=== PATIENT | female | born 1950 | race Caucasian/White ===

== ENCOUNTER 2018-09-12 10:18 | Inpatient (IN) | payer MEDICARE, MEDICAID ==
[2018-09-12] MEDS ORDERED: Famotidine IV* 10 MG/ML 2 ML (20 mg) ONE (10:33)
[2018-09-12] MEDS ORDERED: Midazolam* 1 MG/ML 5 ML VIAL (5 MG) ONE (11:34)
[2018-09-12] MEDS ORDERED: Lidocaine 2% PF * 5 ML VIAL ONE (11:34)
[2018-09-12] MEDS ORDERED: Ondansetron INJ* 2 MG/ML VIAL ONE (11:34)
[2018-09-12] MEDS ORDERED: Propofol* 10 MG/ML 20 ML BTL ONE ×2 (11:34→12:52)
[2018-09-12] MEDS ORDERED: KETAMINE HCL* 50 MG/ML 10 ML VIAL ONE (11:34)
[2018-09-12] MEDS ORDERED: fentaNYL* 50 MCG/ML 2 ML VIAL (100 MCG VIAL) ONE (11:34)
[2018-09-12] MEDS ORDERED: EPHEDrine (Pressors)* 50 MG/ML VIAL ONE (12:41)
[2018-09-12] MEDS ORDERED: Naloxone* 0.4 MG/ML 1 ML VIAL IV PRN (13:21)
[2018-09-12] MEDS ORDERED: Acetaminophen TAB* 325 MG PO PRN (14:52)
[2018-09-12] MEDS ORDERED: Al Hydrox/Mg Hydrox/Simet LIQ* 30 ML UDC PO PRN (14:52)
[2018-09-12] MEDS ORDERED: Magnesium Hydroxide LIQ* 30 ML UDC PO PRN (14:52)
[2018-09-12] MEDS ORDERED: Dextrose 50% Syringe 50 ML* 25 GM/50 ML SYRINGE IV PUSH PRN (15:07)
[2018-09-12] MEDS ORDERED: guaiFENesin LIQ* 100 MG/5 ML UDC PO PRN (15:10)
[2018-09-12] MEDS: NS 0.9% 1000 ML** 1,000 ML IV SCH (16:06)
[2018-09-12 17:53] LABS: ABS Basophils 0 10^3/ul (0-0.2); ABS Eosinophils 0 10^3/ul (0-0.6); ABS Monocytes 0.4 10^3/ul (0-0.8); ABS Neutrophils 4.4 10^3/ul (1.5-7.7); ABS Nucleated RBC 0 10^3/ul; Eosinophil % 0 %; Hematocrit 29 % (35-47); Hemoglobin 8.6 g/dl (12.0-16.0); Lymphocyte % 16.6 %; Mean Corpuscular HGB Conc 30 g/dl (31-36); Mean Corpuscular Hemoglobin 20 pg (27-31); Mean Corpuscular Volume 65 fL (80-97); Mean Platelet Volume 8.3 fL (7.4-10.4); Nucleated Red Blood Cells % 0.1; Platelet Count 469 10^3/ul (150-450); Red Blood Count 4.39 10^6/ul (4.00-5.40); Red Cell Distribution Width 21 % (10.5-15); White Blood Count 5.8 10^3/ul (3.5-10.8)
[2018-09-12] MEDS: Insulin LISPRO* 1 UNITS UNIT SUBCUT SCH ×2 (17:55→21:07)
[2018-09-12 18:11] LABS: Albumin 3.2 g/dL (3.2-5.2); BUN/Creatinine Ratio 10.2 (8-20); Calcium 8.5 mg/dL (8.6-10.3); EGFR African American 77.8 (>60); EGFR Non-African American 64.3 (>60); Globulin 3.2 g/dL (2-4); Potassium 3.2 mmol/L (3.5-5.0); Total Bilirubin 0.3 mg/dL (0.2-1.0); Total Protein 6.4 g/dL (6.4-8.9)
[2018-09-12] MEDS ORDERED: Iodixanol* (CONTRAST) 320 MG/ML 100 ML SDV IV ONE (18:20)
--- NOTE | 2018-09-12 19:32 | HP ---
CC: Dr. Owens; Dr. Weldon, Gastroenterology; Dr. Andreia Gray, General Surgery * HISTORY AND PHYSICAL: DATE OF ADMISSION: 09/12/18 PRIMARY CARE PROVIDER: Dr. Owens. CHIEF COMPLAINT: Status post colonoscopy with abnormal findings. HISTORY OF PRESENT ILLNESS: Magdalena Barroso is a 68-year-old female with history of obesity, diabetes, hypothyroidism, mental retardation, who lives long -term in a [facility]. The patient herself is not very sure for how long she had been living there, but "for quite some time." Apparently, the patient was evaluated by her primary care provider for anemia and she was noted to have abnormal CT findings with thickening of the colon. Dr. Weldon performed an elective outpatient colonoscopy on the patient today and noted to have a large colon mass that was friable and bleeding. At this point, due to the extent of the mass and the patient's management issues, the patient was recommended by Dr. Weldon to be admitted to the hospital for further evaluation and treatment of a near obstructing colon mass. The patient herself is a very poor historian and most of the remaining history and physical was obtained from medical records. PAST MEDICAL HISTORY: 1. History of obesity. 2. Diabetes type 2, on insulin. 3. Hypothyroidism. 4. History of recent evaluation for anemia as above. 5. History of gastroesophageal reflux disease. 6. History of depression. 7. History of mental retardation. PAST SURGICAL HISTORY: History of exploratory laparotomy for unknown reason. MEDICATIONS: Include: 1. Zyrtec 10 mg daily. 2. Vitamin D3 50,000 units p.o. weekly. 3. Ferrous sulfate 325 mg b.i.d. 4. Fluphenazine 2.5 mg per mL and the patient takes 0.5 mL IM monthly, which would appear to be 1.25 mg monthly intramuscular injection. 5. Robitussin on a p.r.n. basis. 6. Insulin glargine 20 units at bedtime. 7. Levothyroxine 125 mcg daily. 8. Omeprazole 20 mg daily. 9. Zoloft 100 mg daily. 10. Zocor 10 mg at bedtime. ALLERGIES: PENICILLIN and CEFZIL with unknown reaction. FAMILY HISTORY: The patient is unable to provide. SOCIAL HISTORY: The patient lives at a long-term residential facility, [facility]. She has no history of alcohol, tobacco, or drug use. Her healthcare proxy is her brother, Adarsh, who lives in [place], [place]. His phone number is [phone]. REVIEW OF SYSTEMS: The patient denies any pain. She is currently sipping on clear liquid diet after her colonoscopy. She denies any shortness of breath or chest pain. She stated that she walks at the [facility] without any problems and independently. The review of systems is very limited, but is otherwise negative when reviewing all the 12 systems with the patient. PHYSICAL EXAMINATION GENERAL: The patient is a very pleasant 68-year-old female with a BMI of 35. The patient is in no acute distress. The patient is oriented to month and current year. She is aware of location and self. She is pleasant and cooperative with evaluation. Poor historian and poor memory. VITAL SIGNS: Blood pressure of 106/52, heart rate of 91 and regular, respiratory rate 16, oxygen saturation 95% on room air, temperature of 97.3. HEENT: Head: Atraumatic, normocephalic. Eyes: Pupils are equal, reactive to light and accommodation. Oropharynx is clear. Mucosa moist. NECK: Supple. No JVD. No bruits bilaterally. RESPIRATORY: Clear to auscultation bilaterally. CARDIOVASCULAR: Regular rate and rhythm. No murmur. ABDOMEN: Distended, tympanic to percussion, soft, nontender. Bowel sounds are present in all 4 quadrants. EXTREMITIES: There is no edema. Pulses are +2 bilaterally. No clubbing or cyanosis. NEUROLOGIC: Speech is clear. Cranial nerves II through XII are grossly intact. Motor strength is 5/5 bilaterally. LABORATORY DATA: Current laboratory data is ordered. ASSESSMENT AND PLAN: 1. Friable large colon mass noted on outpatient colonoscopy in a patient with history of iron-deficiency anemia and abnormal CT findings of abdomen in the past. As per Dr. Weldon's recommendation, the patient is going to be admitted to the hospital for further evaluation. I already contacted Dr. Andreia Gray from General Surgery, who will evaluate the patient for further surgical intervention. Due to questionable near obstruction by the mass, the patient is going to be currently placed on clear liquid diet and CT of the chest, abdomen and pelvis is going to be obtained to evaluate further the extent of the disease. 2. For hypothyroidism, the patient is going to be continued on her levothyroxine. 3. For diabetes, the patient is going to be placed on insulin sliding scale. Due to limited diet, her usual insulin glargine is not going to be continued for the time being. 4. For history of gastroesophageal reflux disease, the patient is going to be continued on her omeprazole. 5. For dyslipidemia, simvastatin is going to be held when the patient is on limited diet. 6. For DVT prophylaxis, due to the mass was friable and bleeding after pathology sample was obtained during colonoscopy, I will place the patient on sequential compression devices and withhold anticoagulants for the time being. We will continue obtaining daily CBCs to evaluate the patient's anemia. 7. The patient's code status is full and her surrogate is her brother as mentioned above. TIME SPENT: Approximately 70 minutes was spent on admission of this patient, more than half that time was spent [id number] with the patient during the interview and physical exam. [id number]/[facility] #: [id number] FOSTER
--- NOTE | 2018-09-12 21:13 | PRO ---
CC: Dr. Owens * COLONOSCOPY REPORT: DATE OF PROCEDURE: 09/12/18 PRIMARY CARE PHYSICIAN: Dr. Owens. INDICATION FOR PROCEDURE: Abnormal CAT scan. PROCEDURE PERFORMED: Complete colonoscopy to the terminal ileum with biopsy and tattooing. MEDICATIONS GIVEN: Please see anesthesia record. DESCRIPTION OF PROCEDURE: The colonoscopy procedure including the risks, benefits, and alternatives with the risks not limited to perforation, surgery, missed lesions, and/or were explained to the primary healthcare proxy and the patient. The healthcare proxy is Adarsh Barroso. I discussed this in detail with him and we agreed to proceed. IV sedation was given by the anesthesia service. A rectal exam was then performed. The rectal exam revealed scant blood. The adult Olympus colonoscope was then inserted into the patient's rectum initially to about 17 cm or so, and there a large circumferential mass was visualized, diffusely bleeding already before attempting to pass. I was unable to successfully pass the adult 3.7 scope. I then switched to an EGD scope and was able to carefully navigate through the narrowed lumen. The mass was friable and bleeding. The scope was eventually able to pass this area. At the conclusion, about 27 cm was the end of the mass and I was able to navigate the rest of the colon to the cecal base. The remainder of the colon was without large lesions or synchronous lesions. The preparation was fair, but I am able to exclude large polyps. The cecum was intubated quite difficult due to the flexibility of the EGD scope, but with persistence I was able to get good visualization of this area. In the cecum, the terminal ileal valve was identified and intubated x4 to 5 cm and normal in appearance. Over the next 12 minutes, I was then able to withdraw the scope. No large lesions were identified ; however, the fair prep did limit the sensitivity of very small lesions, but I feel I got good views overall. On return to 27 cm, I injected this area with Spot tattoo ink proximal to the lesion. I then injected distal to the lesion at around 15 cm or so the distal end of the lesion. I then extensively took biopsies. At the conclusion, there was still some bleeding occurring, the scope was then removed from the patient. She tolerated the procedure well. She returned to the recovery room in stable condition. IMPRESSION: 1. Complete colonoscopy to the terminal ileum. 2. Sigmoid colon mass 15 to 27 cm tattooed with Spot ink on either side and biopsied. 3. No large synchronous lesions identified. 4. Fair prep. RECOMMENDATIONS: Given the bleeding in the narrow lumen, I recommended admission for further workup. I discussed this with the healthcare proxy, Adarsh and he is in agreement. He is open to potential surgery if needed. He has a few reservations about potential chemotherapy depending on the extent of disease and how well she would tolerate it. I discussed the case with Dr. Lorenzo , who is agreeable to admission. We will admit the patient, get a CT of the chest, abdomen, and pelvis, and I will discuss the case with the surgical service. I feel that this is far enough up into the sigmoid colon that a resection is reasonable. [id number]/[facility] #: [id number] FOSTER
[2018-09-13] MEDS: Insulin LISPRO* 1 UNITS UNIT SUBCUT SCH ×4 (08:30→20:45)
[2018-09-13] MEDS: Levothyroxine TAB* 125 MCG TAB PO SCH (08:55)
[2018-09-13] MEDS: Sertraline* 100 MG TAB PO SCH (08:55)
[2018-09-13] MEDS: Pantoprazole TAB * 40 MG TAB PO SCH (08:55)
[2018-09-13 11:17] LABS: Total Iron Binding Capacity 290 mcg/dL (250-450); Transferrin 207 mg/dL (203-362)
[2018-09-13 11:22] LABS: % Iron Saturation 6 % (15-55); Iron < 17 ug/dL (50-212)
[2018-09-13 11:38] LABS: Ferritin 28.5 ng/mL (11-307)
--- NOTE | 2018-09-13 11:49 | PN ---
Progress Note - Progress Note Date of Service: 09/13/18 Note: Surgery Progress Note I saw the patient this morning as she was not in CT yesterday evening; please see dictated H&P for full details. Briefly, she is a 68 yo F with a history of anemia and bleeding per rectum. She had a CT scan that showed a sigmoid mass and colonoscopy yesterday confirmed a large near obstructing, friable sigmoid colon mass that biopsy confirms is adenocarcinoma. Staging CT C/A/P confirmed no distant metastasis but the mass itself appears locally invasive, making the lesion a clinical [id number] lesions (stage IIc). I spoke to her brother Adarsh (her healthcare proxy and medical decision maker), over the phone and discussed with him the results of the biopsy and the next steps. I have added the patient on for Tumor Board today and we will discuss the patient's management plans and surgical options. He indicated he was not certain if adjuvant chemotherapy and radiation is something he thinks she would tolerate but he seems willing for her to undergo surgery.
--- NOTE | 2018-09-13 12:09 | CONS ---
CONSULTATION AND HISTORY AND PHYSICAL: DATE OF CONSULT: 09/13/18 SERVICE: General Surgery. ATTENDING SURGEON: Dr. Andreia Gray. REASON FOR CONSULT: Sigmoid mass seen on colonoscopy. HISTORY OF PRESENT ILLNESS: Magdalena Barroso is a 68-year-old female with history of obesity, diabetes, hypothyroidism, mental retardation, who lives in a long-term facility in the [facility], who underwent colonoscopy yesterday with findings of a near-obstructing, friable sigmoid colon mass. Of note, the majority of this medical history is being obtained from medical records as the patient has developmental delay, does not have family members at the bedside, and the majority of the information was ascertained by discussing with other providers as well as reviewing her medical records. It seems that the patient was evaluated by her primary care physician for anemia and a CT scan was performed that showed abnormal thickening of the sigmoid colon. Dr. Weldon performed an elective outpatient colonoscopy on the patient on 09/12/18 and per the procedure report, found circumferential, long- segment, distal sigmoid colon friable mass. He was unable to pass the regular colonoscope through the lumen and therefore used a smaller upper endoscopic scope. Given that the lesion was extremely friable and appeared to be actively bleeding and it was near obstructing, he elected to have the patient admitted for further workup and the patient was admitted to Medicine. The patient is a poor historian. She can answer some questions. She states that she does not have any pain today. Per her nurse, she has been tolerating a diet. She is incontinent of stool and urine, but she is having watery bowel movements. The patient herself has said that her prior surgery was a hysterectomy. PAST MEDICAL HISTORY: 1. Obesity. 2. Diabetes type 2, on insulin. 3. Hypothyroidism. 4. Anemia. 5. Gastroesophageal reflux disease. 6. Depression. 7. History of mental retardation. PAST SURGICAL HISTORY: Exploratory laparotomy presumably for a hysterectomy per the patient. MEDICATIONS: 1. Zyrtec 10 mg daily. 2. Vitamin D. 3. Ferrous sulfate. 4. Fluphenazine. 5. Robitussin p.r.n. 6. Insulin glargine 20 units at bedtime. 7. Levothyroxine 125 mcg daily. 8. Omeprazole 20 mg daily. 9. Zoloft 100 mg daily. 10. Zocor 10 mg at bedtime. ALLERGIES: PENICILLIN and CEFZIL. FAMILY HISTORY: Unable to be ascertained from the patient. SOCIAL HISTORY: The patient has developmental delay. She lives in a long-term facility. No history of alcohol, tobacco, or drug use. Her healthcare proxy is her brother, Adarsh, who lives in [place], [place]; phone number is . REVIEW OF SYSTEMS: Unable to be obtained; however, the patient did say that the patient she does not have any abdominal pain. PHYSICAL EXAM: Vital Signs: Temperature is 97.3, pulse is 89, respiratory rate of 20, O2 sat is 98% O2 on room air, blood pressure is 114/51. General: Is an obese woman, sitting comfortably in bed, in no apparent distress, does answer some questions slowly and cannot understand other questions. HEENT is normocephalic, atraumatic. Cardiovascular is regular rate and rhythm. Respiratory: Clear to auscultation bilaterally. Abdomen is soft, distended, some tympani, nontender. There is a well-healed midline laparotomy incision. Extremities: She has no edema, but some venous stasis disease. DIAGNOSTIC STUDIES/LAB DATA: Laboratory values from 09/12/18: White blood cell count of 5.8, hemoglobin is 8.6, hematocrit is 29, platelets are 469. Sodium is 137, potassium is 3.2, chloride is 104, CO2 is 25, BUN is 9, creatinine is 0.88, glucose is 175. CEA is 41.6 and the upper limit of normal is 5. Imaging: CT chest, abdomen and pelvis from 09/12/18, please see images and full reports for details. I reviewed this imaging. Findings showed no thoracic metastatic disease, findings which in the proper clinical setting can be seen in pulmonary hypertension. The abdomen and pelvis showed a mid sigmoid mass involving the adjacent uterus and bladder, T4b, with no abnormal lymph nodes and no visualized metastases. The findings are consistent with stage IIC , nonspecific hepatosplenomegaly. Procedure reports: Colonoscopy from 09/12/[address] Weldon. Impression was complete colonoscopy to the terminal ileum, sigmoid colon mass 15 to 27 cm, tattooed with Spot ink on either side and biopsied. No large synchronous lesions identified, fair prep. ASSESSMENT AND PLAN: Ms. Barroso is a 68-year-old female with multiple medical problems most significantly for a developmental delay, who had apparently presented with anemia and during workup was found to have an abnormal sigmoid mass. An elective colonoscopy was done yesterday, which did confirm a large circumferential sigmoid mass that was friable and near obstructing and which is almost certainly consistent with the sigmoid colon adenocarcinoma especially given her elevated CEA. We are awaiting the pathology results in order to confirm the diagnosis and we will discuss this patient at tumor board. The patient will certainly need to have an oncologic resection performed; however, again given her history of developmental delay, this case must also be discussed with her healthcare proxy in order to obtain informed consent. [id number]/[facility] #: [id number] [facility]OSTER
[2018-09-13] MEDS: NS 0.9% 1000 ML** 1,000 ML IV SCH (12:53)
--- NOTE | 2018-09-13 12:58 | PN ---
Subjective Date of Service: 09/13/18 Interval History: Pt seen and examined. Meds and labs reviewed. CC: N/A ROS: Unable to obtain reliable 14 point ROS due to baseline developmental delay PHYSICAL EXAM: GEN APPEARANCE: Awake, not in acute distress HEENT: NC/AT, PERRLA, moist oral mucosa, (-) throat erythema NECK: Soft, supple, (-) cervical LAD, (-)JVD HEART: S1S2 WNL, RRR, No MRG CHEST: CTA, BL, GAE, No W/R/R ABD: Soft, ND/NT, NABS 4x Q EXT: No C/C/E SKIN: Warm to touch PSYCH: No active psychosis, hallucinations, depression, SI/HI, blunt affect Objective Active Medications: Acetaminophen (Tylenol Tab*) 650 mg PO Q4H PRN PRN Reason: FEVER/PAIN Al Hydrox/Mg Hydrox/Simethicone (Maalox Plus*) 30 ml PO Q6H PRN PRN Reason: INDIGESTION Dextrose (D50w Syringe 50 Ml*) 12.5 gm IV PUSH .FOR FS < 60 - SS PRN PRN Reason: FS < 60 Guaifenesin (Robitussin*) 10 ml PO Q6HR PRN PRN Reason: COUGH Sodium Chloride (Ns 0.9% 1000 Ml*) 1,000 mls @ 75 mls/hr IV PER RATE [facility] Last Admin: 09/13/18 12:53 Dose: 75 mls/hr Insulin Human Lispro (Humalog*) 0 units SUBCUT [facility]; Protocol Last Admin: 09/13/18 12:53 Dose: 1 units Levothyroxine Sodium (Synthroid Tab*) 125 mcg PO 0800 [facility] Last Admin: 09/13/18 08:55 Dose: 125 mcg Magnesium Hydroxide (Milk Of Magnesia Liq*) 30 ml PO Q4H PRN PRN Reason: CONSTIPATION Pantoprazole Sodium (Protonix Tab*) 40 mg PO 0800 [facility] Last Admin: 09/13/18 08:55 Dose: 40 mg Sertraline HCl (Zoloft*) 100 mg PO 0800 [facility] Last Admin: 09/13/18 08:55 Dose: 100 mg Vital Signs - 8 hr 09/13/18 09/13/18 09/13/18 07:27 07:38 08:00 Temperature 97.3 F Pulse Rate 89 Respiratory 20 20 Rate Blood Pressure 114/51 (mmHg) O2 Sat by Pulse 98 98 Oximetry Oxygen Devices in Use Now: None Result Diagrams: 09/12/18 17:38 09/12/18 17:38 Assess/Plan/Problems-Billing Assessment: - Patient Problems (1) Colon adenocarcinoma Current Visit: Yes Status: Acute Code(s): C18.9 - MALIGNANT NEOPLASM OF COLON, UNSPECIFIED SNOMED Code(s): 418997058 Comment: #Colon AdenoCA: -Invasive -D/W Dr. Rubin this AM who mentions she had just touched base with Surgeons and given invasiveness, may need a Gyne and Urology consult as well -Possible transfer to tertiary facility in AM? Will await plan being formulated by Dr. Rubin and appreciate input -Defer w/Heme-Onc (2) Anemia Current Visit: Yes Status: Acute Code(s): D64.9 - ANEMIA, UNSPECIFIED SNOMED Code(s): 363400007 Comment: -Will obtain Iron studies, B12, and folate levels -Given above, possibly due to combo of LAILA + AOCD---will await W/U (3) Hypothyroidism Current Visit: Yes Status: Acute Code(s): E03.9 - HYPOTHYROIDISM, UNSPECIFIED SNOMED Code(s): 75577646 Comment: -Continue current levothyroxine -Last TSH drawn was 04/2018 and was moderately elevated -Will repeat draw in AM (4) Diabetes 1.5, managed as type 2 Current Visit: Yes Status: Acute Code(s): E13.9 - OTHER SPECIFIED DIABETES MELLITUS WITHOUT COMPLICATIONS SNOMED Code(s): 304054846 Comment: -Well-controlled -Hba1c (08/29/18) = 5.6 -Continue ISS (5) GERD (gastroesophageal reflux disease) Current Visit: Yes Status: Acute Code(s): K21.9 - GASTRO-ESOPHAGEAL REFLUX DISEASE WITHOUT ESOPHAGITIS SNOMED Code(s): 659278136 Comment: -Continue Pantoprazole (6) DVT prophylaxis Current Visit: Yes Status: Acute Code(s): WNC4577 - SNOMED Code(s): 401618339 Comment: -Continue SCDs Status and Disposition: -As above
--- NOTE | 2018-09-13 13:35 | CONSULT ---
Consultation - Reason for Consultation Reason for Consultation: colon cancer Ordering Provider: Alcides Weldon Chief Complaint: work up of colon mass History of Present Illness: Of note, Yazmin is a limited historian so the majority of this history comes from the chart and in conversation with her team of doctors. Yazmin is a 68 yo morbidy obese F w PMH of mental retardation, DM and HTN who has been undergoing evaluation for iron deficiency anemia. She was initially managed conservatively given her comorbidities, however had a CT which suggested sigmoid colon thickening and so was taken for colonoscopy yesterday which revealed a large nearly obstructing sigmoid colon mass, biopsy of which confirms adenocarcinoma. Staging CT is concerning for local extension into the vagina/vaginal cuff and the bladder. Her CEA is ~48. She denies any obvious blood in stool or urine (or stool in urine). She does report mild midepigastric pain. She has lost 20 pounds (weight at [facility] 06/2018 218 lbs). She has been seen in consultation by Dr. Gray from surgery. Allergies/Medications Medication: Home Medications Medication Instructions Recorded Confirmed Type Cetirizine* [ZyrTEC 10 MG TAB*] 10 mg PO 0800 09/11/18 09/12/18 History Cholecalciferol CAP/TAB(NF) 50,000 units PO WEEKLY 09/11/18 09/12/18 History [Vitamin D3 CAP/TAB (NF)] Ferrous Sulfate 325 mg PO BID 09/11/18 09/12/18 History Fluphenazine IM* 0.5 ml IM MONTHLY 09/11/18 09/12/18 History Insulin Glargine,Hum.rec.anlog 20 unit SC BEDTIME 09/11/18 09/12/18 History [Lantus] Levothyroxine Sodium 125 mcg PO 0800 09/11/18 09/12/18 History Omeprazole CAP (NF) [Prilosec CAP* 20 mg PO 0800 09/11/18 09/12/18 History 20 MG] Sertraline HCl [Zoloft] 100 mg PO 0800 09/11/18 09/12/18 History Simvastatin TAB(NF) [Zocor(NF)] 10 mg PO BEDTIME 09/11/18 09/12/18 History guaiFENesin LIQ* [Robitussin*] 10 ml PO Q6HR PRN 09/11/18 09/12/18 History Allergies/Adverse Reactions: Allergies Allergy/AdvReac Type Severity Reaction Status Date / Time Cephalosporins Allergy Unknown Verified 09/12/18 11:11 Reaction Details Penicillins Allergy Unknown Verified 09/12/18 11:11 Reaction Details History - Past Medical History Other History: DM. mental delay. GERD. hypothyroidism. obesity. hysterectomy - Family History Other Family History: patient unable to provide - Social History Hx Alcohol Use: No Hx Tobacco Use: No Other Social History: resident of [facility] Review of Systems - Review of Systems General Comments: weight loss, can not provide an amount but per SNF record 20 lbs midepigastric pain at times, mild otherwise denies Physical Exam - Physical Exam Physical Examination: sitting up in nad perr eomi op moist CTA bl s1 s2 nl distended, very mild ttp midepigastrium, +bs no le edema A+O x 3, clear delay but able to answer questions quit well Results - Lab Results Lab Results: 09/12/18 09/12/18 09/12/18 11:39 13:25 17:21 WBC RBC Hgb Hct MCV MCH MCHC RDW Plt Count MPV Neut % (Auto) Lymph % (Auto) Gates % (Auto) Eos % (Auto) Baso % (Auto) Absolute Neuts (auto) Absolute Lymphs (auto) Absolute Monos (auto) Absolute Eos (auto) Absolute Basos (auto) Absolute Nucleated RBC Nucleated RBC % Sodium Potassium Chloride Carbon Dioxide Anion Gap BUN Creatinine Est GFR ( Amer) Est GFR (Non-Af Amer) BUN/Creatinine Ratio Glucose POC Glucose (mg/dL) 152 H 151 H 180 H Calcium Iron TIBC % Saturation Unsat Iron Binding Transferrin Ferritin Total Bilirubin AST ALT Alkaline Phosphatase Total Protein Albumin Globulin Albumin/Globulin Ratio Carcinoembryonic Ag Vitamin B12 09/12/18 09/12/18 09/12/18 17:38 17:38 17:38 WBC 5.8 RBC 4.39 Hgb 8.6 L Hct 29 L MCV 65 L MCH 20 L MCHC 30 L RDW 21 H Plt Count 469 H D MPV 8.3 Neut % (Auto) 75.4 Lymph % (Auto) 16.6 Gates % (Auto) 7.2 Eos % (Auto) 0 Baso % (Auto) 0.8 Absolute Neuts (auto) 4.4 Absolute Lymphs (auto) 1.0 Absolute Monos (auto) 0.4 Absolute Eos (auto) 0 Absolute Basos (auto) 0 Absolute Nucleated RBC 0 Nucleated RBC % 0.1 Sodium 137 Potassium 3.2 L Chloride 104 Carbon Dioxide 25 Anion Gap 8 BUN 9 Creatinine 0.88 Est GFR ( Amer) 77.8 Est GFR (Non-Af Amer) 64.3 BUN/Creatinine Ratio 10.2 Glucose 175 H POC Glucose (mg/dL) Calcium 8.5 L Iron TIBC % Saturation Unsat Iron Binding Transferrin Ferritin Total Bilirubin 0.30 AST 12 L ALT 5 L Alkaline Phosphatase 64 Total Protein 6.4 Albumin 3.2 Globulin 3.2 Albumin/Globulin Ratio 1.0 Carcinoembryonic Ag 41.6 H Vitamin B12 09/12/18 09/13/18 09/13/18 20:59 08:17 10:20 WBC RBC Hgb Hct MCV MCH MCHC RDW Plt Count MPV Neut % (Auto) Lymph % (Auto) Gates % (Auto) Eos % (Auto) Baso % (Auto) Absolute Neuts (auto) Absolute Lymphs (auto) Absolute Monos (auto) Absolute Eos (auto) Absolute Basos (auto) Absolute Nucleated RBC Nucleated RBC % Sodium Potassium Chloride Carbon Dioxide Anion Gap BUN Creatinine Est GFR ( Amer) Est GFR (Non-Af Amer) BUN/Creatinine Ratio Glucose POC Glucose (mg/dL) 154 H 117 H Calcium Iron < 17 L TIBC 290 % Saturation 6 L Unsat Iron Binding < 275 Transferrin 207 Ferritin 28.5 Total Bilirubin AST ALT Alkaline Phosphatase Total Protein Albumin Globulin Albumin/Globulin Ratio Carcinoembryonic Ag Vitamin B12 1033 H Assessment and Plan Impression: 68 yo F w at least T4 colon CA without any clear evidence of distant metastatic disease. I discussed this with Pat to some degree, but with her HCP, Adarsh, and Dr. Gray at length. I do think she would be a reliable candidate for chemotherapy as she is able to report symptoms and is in a closely monitored living situation. Given that I think it is reasonable to offer her a curative intent surgery. I will defer to the technicalities of this to the surgical consultants. If need be her brother would be willing to have her referred to a tertiary care center. I will continue to follow her clinically.
--- NOTE | 2018-09-13 17:52 | PN ---
Progress Note - Progress Note Date of Service: 09/13/18 Note: Surgery Progress Note We discussed the patient at Tumor Board-- no distant metastatic disease is present on imaging but local invasion of the primary tumor potentially into the bladder and vaginal cuff is a concern. Dr. Rubin determined that the patient would be an appropriate candidate for adjuvant chemoradiation and spoke to patient's HCP, Adarsh, who wishes move forward with both surgery and with the plan for his sister to receive adjuvant therapy. Dr. Rashid and I discussed the case and spoke with Adarsh. We discussed the CT findings and surgical options with him. If he wishes for the most aggressive en bloc oncologic resection the patient should be transferred to a tertiary center where gynecology/oncology and uro/onc services are available to potentially perform bladder resection, ureteral implantation, etc. We discussed that such a surgery comes with its own inherent risks and complications and may not necessarily improve her quality of life, however it would have the best chance of removing the entirety of the gross tumor. If he wishes for her to remain at [facility] for surgery where there are such specialty services are not avaialble we would perform an exploratory laparotomy and as close to an R0 resection as possible, with the understanding that there may potentially be gross tumor left behind that could be treated with pelvic radiation therapy. We also told him that we would not know for sure how invasive the tumor is without first exploring the abdomen. He understands this and wishes for her to remain at [facility] for surgery. We discussed surgery would be an exploratory laparotomy, sigmoid resection and likely a colostomy as the patient already appears to be incontinent of stool and the risk of an anastomotic leak is higher given her near obstructing, bleeding malignancy and anemia. He wishes to be here for surgery and will make plans to arrive tomorrow afternoon from [place]. We will tentatively plan for surgery Tuesday afternoon, depending on OR availability. Patient should stay on clears until then and will need a bowel prep before surgery. We will also discuss the case with urology to see if a cysto would be useful preop. I discussed this plan with Drs. Rubin and Riley.
[2018-09-14] MEDS: NS 0.9% 1000 ML** 1,000 ML IV SCH ×3 (04:02→23:03)
[2018-09-14 05:34] LABS: ABS Basophils 0 10^3/ul (0-0.2); ABS Eosinophils 0 10^3/ul (0-0.6); ABS Lymphocytes 0.9 10^3/ul (1.0-4.8); ABS Monocytes 0.5 10^3/ul (0-0.8); ABS Nucleated RBC 0 10^3/ul; Eosinophil % 0 %; Hematocrit 29 % (35-47); Hemoglobin 8.9 g/dl (12.0-16.0); Lymphocyte % 16.9 %; Mean Corpuscular HGB Conc 31 g/dl (31-36); Mean Corpuscular Hemoglobin 20 pg (27-31); Mean Corpuscular Volume 66 fL (80-97); Mean Platelet Volume 8.4 fL (7.4-10.4); Nucleated Red Blood Cells % 0.1; Platelet Count 474 10^3/ul (150-450); Red Blood Count 4.42 10^6/ul (4.00-5.40); Red Cell Distribution Width 21 % (10.5-15); White Blood Count 5.5 10^3/ul (3.5-10.8)
[2018-09-14 05:46] LABS: ALT 6 U/L (7-52); AST 11 U/L (13-39); Albumin 3.1 g/dL (3.2-5.2); Alkaline Phosphatase 63 U/L (34-104); Anion Gap 6 mmol/L (2-11); BUN/Creatinine Ratio 6.7 (8-20); Blood Urea Nitrogen 6 mg/dL (6-24); CO2 Carbon Dioxide 23 mmol/L (22-32); Calcium 8.3 mg/dL (8.6-10.3); Chloride 110 mmol/L (101-111); Cholesterol 87 mg/dL; EGFR African American 76.8 (>60); EGFR Non-African American 63.5 (>60); Globulin 3.1 g/dL (2-4); Glucose 122 mg/dL (70-100); HDL Cholesterol 25.4 mg/dL; LDL Cholesterol 44 mg/dL; Magnesium 1.8 mg/dL (1.9-2.7); Phosphorus 3.9 mg/dL (2.5-5.0); Potassium 3.2 mmol/L (3.5-5.0); Sodium 139 mmol/L (135-145); Total Protein 6.2 g/dL (6.4-8.9); Triglycerides 89 mg/dL
[2018-09-14 06:22] LABS: Total Iron Binding Capacity 293 mcg/dL (250-450); Transferrin 209 mg/dL (203-362)
[2018-09-14 06:24] LABS: % Iron Saturation 6 % (15-55); Iron < 17 ug/dL (50-212)
[2018-09-14 06:42] LABS: Ferritin 32.5 ng/mL (11-307)
[2018-09-14 06:45] LABS: Folate 7.23 ng/mL (>3.99)
[2018-09-14] MEDS: Pantoprazole TAB * 40 MG TAB PO SCH (08:37)
[2018-09-14] MEDS: Levothyroxine TAB* 125 MCG TAB PO SCH (08:37)
[2018-09-14] MEDS: Sertraline* 100 MG TAB PO SCH (08:37)
[2018-09-14] MEDS: Insulin LISPRO* 1 UNITS UNIT SUBCUT SCH ×4 (08:37→21:39)
[2018-09-14] MEDS ORDERED: Magnesium Sulfate 2 GM IV* 2 GM/50 ML BAG IVPB ONE (08:45)
[2018-09-14] MEDS ORDERED: Potassium Chlor TAB* 20 MEQ TAB.ER PO STA (08:45)
[2018-09-14] MEDS ORDERED: NS 0.9% 1000 ML** 1,000 ML IV SCH (10:45)
[2018-09-14] MEDS ORDERED: NS 0.9% 500 ML* 500 ML IV ONE (10:45)
[2018-09-14] MEDS ORDERED: PEG 3000 GI LAVAGE* 1 GALLON PO ONE (10:50)
[2018-09-14] MEDS ORDERED: metroNIDAZOLE TAB* 250 MG PO ONE ×3 (13:00→23:00)
[2018-09-14] MEDS ORDERED: Levofloxacin 500 MG IVPREMIX(* 500 MG/100 ML BAG IVPB ONE (13:00)
[2018-09-14] MEDS: Neomycin TAB* 500 MG PO SCH ×3 (13:48→23:05)
--- NOTE | 2018-09-14 14:27 | PN ---
Subjective Date of Service: 09/14/18 Interval History: Pt seen and examined. Meds and labs reviewed. CC: N/A ROS: Denied [place]/dizziness, F/C, N/V, CP, SOB, increased cough, sputum production , abd pain, diarrhea, constipation, dysuria, myalgias, arthralgias, throat pain , and new skin lesions. The rest of the 14 point ROS are unremarkable. PHYSICAL EXAM: GEN APPEARANCE: Awake, not in acute distress HEENT: NC/AT, PERRLA, moist oral mucosa, (-) throat erythema NECK: Soft, supple, (-) cervical LAD, (-)JVD HEART: S1S2 WNL, RRR, No MRG CHEST: CTA, BL, GAE, No W/R/R ABD: Soft, ND/NT, NABS 4x Q EXT: No C/C/E SKIN: Warm to touch PSYCH: No active psychosis, hallucinations, depression, SI/HI, blunt affect Objective Active Medications: Acetaminophen (Tylenol Tab*) 650 mg PO Q4H PRN PRN Reason: FEVER/PAIN Al Hydrox/Mg Hydrox/Simethicone (Maalox Plus*) 30 ml PO Q6H PRN PRN Reason: INDIGESTION Stop: 09/15/18 00:01 Citric Acid/Sodium Citrate (Bicitra*) 15 ml PO Q6H PRN PRN Reason: INDIGESTION Dextrose (D50w Syringe 50 Ml*) 12.5 gm IV PUSH .FOR FS < 60 - SS PRN PRN Reason: FS < 60 Dimenhydrinate (Dramamine Iv*) 25 mg IV PUSH ONCE ONE Stop: 09/15/18 09:01 Famotidine (Pepcid Iv*) 20 mg IV ONCE ONE Stop: 09/15/18 09:01 Guaifenesin (Robitussin*) 10 ml PO Q6HR PRN PRN Reason: COUGH Clindamycin HCl/Dextrose (Cleocin 900 Mg/50 Ml(*)) 900 mg in 50 mls @ 100 mls/ hr IVPB ONCE ONE Stop: 09/15/18 11:29 Gentamicin Sulfate 250 mg/ (Sodium Chloride) 106.25 mls @ 200 mls/hr IVPB ONCALL ONE Stop: 09/15/18 10:31 Sodium Chloride (Ns 0.9% 1000 Ml*) 1,000 mls @ 120 mls/hr IV PER RATE [facility] Insulin Human Lispro (Humalog*) 0 units SUBCUT ACHS [facility]; Protocol Last Admin: 09/14/18 13:43 Dose: Not Given Levothyroxine Sodium (Synthroid Tab*) 125 mcg PO 0800 [facility] Last Admin: 09/14/18 08:37 Dose: 125 mcg Magnesium Hydroxide (Milk Of Magnesia Liq*) 30 ml PO Q4H PRN PRN Reason: CONSTIPATION Metronidazole (Flagyl Tab*) 500 mg PO ONCE ONE Stop: 09/14/18 23:01 Neomycin Sulfate (Neomycin Tab*) 1,000 mg PO 1300,1400,2300 [facility] Stop: 09/14/18 23:01 Last Admin: 09/14/18 13:48 Dose: 1,000 mg Pantoprazole Sodium (Protonix Tab*) 40 mg PO 0800 [facility] Last Admin: 09/14/18 08:37 Dose: 40 mg Sertraline HCl (Zoloft*) 100 mg PO 0800 [facility] Last Admin: 09/14/18 08:37 Dose: 100 mg Vital Signs - 8 hr 09/14/18 09/14/18 09/14/18 07:06 08:00 08:37 Temperature 98.1 F Pulse Rate 77 Respiratory 14 14 Rate Blood Pressure 95/41 96/46 (mmHg) O2 Sat by Pulse 97 97 Oximetry 09/14/18 11:08 Temperature 98.3 F Pulse Rate 76 Respiratory 16 Rate Blood Pressure 110/42 (mmHg) O2 Sat by Pulse 100 Oximetry Oxygen Devices in Use Now: None Result Diagrams: 09/14/18 05:21 09/14/18 05:21 Assess/Plan/Problems-Billing Assessment: - Patient Problems (1) Colon adenocarcinoma Current Visit: Yes Status: Acute Code(s): C18.9 - MALIGNANT NEOPLASM OF COLON, UNSPECIFIED SNOMED Code(s): 257985421 Comment: -Invasive -D/W both Nuno Rubin and Isaac yesterday and touched based with Dr. Gray this AM -Appreciate Dr. Norris input and pt for planned exploratory laparotomy w/sigmoid resection and colostomy today that she mentioned Dr. Love would like to first perform cystoscopy w/stent placement; stents are being placed to yuliet the ureters so as to avoid them for planned Sx in AM -Will defer (2) Hypotension Current Visit: Yes Status: Acute Comment: -Mild and asymptomatic and responds with IVF -Continue current IVF for now prior to planned procedure by Dr. Ivan garcia -Renal function normal but maybe slightly intravascularly depeleted (3) Pre-op evaluation Current Visit: Yes Status: Acute Code(s): Z01.818 - ENCOUNTER FOR OTHER PREPROCEDURAL EXAMINATION SNOMED Code(s): 577833595 Comment: -Pt is a high cardiovascular risk w/RCRI =2 for a high risk surgical procedure w /estimated MACE ~2.4%; pt currently does not have any active pulmonary nor cardiac problems nor history thereof that precludes planned debulking surgery followed by Chemo and radiotherapy; will defer further discussion of surgical risks between surgical team and patient; most recent EKG and CT of chest reviewed. (4) Anemia Current Visit: Yes Status: Acute Code(s): D64.9 - ANEMIA, UNSPECIFIED SNOMED Code(s): 391734208 Comment: -B12, and folate levels reassuring -Iron studies suggest LAILA + AOCD as expected -Consider PO supplentations prior to D/C (5) Hypothyroidism Current Visit: Yes Status: Acute Code(s): E03.9 - HYPOTHYROIDISM, UNSPECIFIED SNOMED Code(s): 45770150 Comment: -Continue current levothyroxine -TSH WNL (6) Diabetes 1.5, managed as type 2 Current Visit: Yes Status: Acute Code(s): E13.9 - OTHER SPECIFIED DIABETES MELLITUS WITHOUT COMPLICATIONS SNOMED Code(s): 372444249 Comment: -Well-controlled -Hba1c (08/29/18) = 5.6 -Continue ISS (7) GERD (gastroesophageal reflux disease) Current Visit: Yes Status: Acute Code(s): K21.9 - GASTRO-ESOPHAGEAL REFLUX DISEASE WITHOUT ESOPHAGITIS SNOMED Code(s): 269469104 Comment: -Continue Pantoprazole (8) DVT prophylaxis Current Visit: Yes Status: Acute Code(s): [id number] - SNOMED Code(s): 402943031 Comment: -Continue SCDs Status and Disposition: -As above
[2018-09-14] MEDS ORDERED: Iohexol 180 (CONTRAST) 10 ML SDV IV ONE ×2 (16:55→17:58)
[2018-09-14] MEDS ORDERED: Lidocaine 2% PF * 5 ML VIAL ONE (17:18)
[2018-09-14] MEDS ORDERED: Propofol* 10 MG/ML 20 ML BTL ONE ×2 (17:18→18:00)
[2018-09-14] MEDS ORDERED: fentaNYL* 50 MCG/ML 2 ML VIAL (100 MCG VIAL) ONE ×2 (17:18→17:46)
[2018-09-14] MEDS ORDERED: Iohexol 300 (CONTRAST) 100 ML SDV IV ONE (17:57)
[2018-09-14] MEDS ORDERED: Ondansetron INJ* 2 MG/ML VIAL ONE (18:03)
[2018-09-14] MEDS ORDERED: EPHEDrine (Pressors)* 50 MG/ML VIAL ONE (18:09)
[2018-09-14] MEDS ORDERED: Naloxone* 0.4 MG/ML 1 ML VIAL IV PRN (18:11)
[2018-09-14] MEDS ORDERED: fentaNYL* 50 MCG/ML 2 ML VIAL (100 MCG VIAL) IV PRN (18:11)
[2018-09-14] MEDS ORDERED: DiMENhydriNATE IV* 50 MG/ML VIAL IV PUSH PRN (18:11)
[2018-09-14] MEDS ORDERED: Ondansetron INJ* 2 MG/ML VIAL IV PRN (20:54)
--- NOTE | 2018-09-14 21:44 | OP ---
DATE OF OPERATION: 09/14/18 - ROOM #403 DATE OF : 54 SURGEON: Isidro Auguste MD ANESTHESIOLOGIST: Dr. Yang. ANESTHESIA: General. PRE-OP DIAGNOSES: 1. Sigmoid tumor. 2. Possible bladder mass (on CT suggestion of sigmoid tumor infiltrating into bladder). POST-OP DIAGNOSES: 1. Sigmoid tumor. 2. Possible bladder mass (on CT suggestion of sigmoid tumor infiltrating into bladder). OPERATIVE PROCEDURE: Cystoscopy, bilateral retrogrades, and bilateral ureteral stent insertion. INDICATIONS: Magdalena Barroso is a 68-year-old lady, who was noted to have a bleeding large sigmoid mass with possible involvement of the bladder on CT. COMPLICATIONS: None. BLOOD LOSS: None. STENTS USED: 8-Pakistani Bosworth Levering length stents, right and left ureter. FINDINGS: 1. Bifid collecting systems (partial) bilaterally with no evidence of obstruction. 2. A 3- to 4-cm area in the mid trigone and posterior bladder wall with appearance consistent with inflammatory response and no evidence of any tumor noted within the urinary bladder. POSTOPERATIVE CONDITION: Stable. DESCRIPTION OF PROCEDURE: After induction of general anesthesia, the patient was placed in dorsal lithotomy position. Sequential compression devices were in place and functioning. Initial cystoscopy revealed the posterior wall of the bladder and the mid trigone to be distorted by extrinsic pressure. The mucosa had an appearance consistent with chronic inflammatory changes without any obvious tumor noted within the bladder. The left orifice was identified. Retrograde pyelogram revealed a bifid left collecting system with a single ureter and no evidence of any obstruction or persistent filling defects. An 8- Pakistani Bosworth stent was introduced and positioned under fluoroscopy with good proximal and distal positioning noted. Attention was directed to the right side. Once again, retrograde revealed a bifid collecting system partially and once again, an 8-Pakistani stent was successfully positioned. The bladder was emptied. The patient tolerated the procedure satisfactorily and was transferred back to the recovery area in stable condition. [id number]/[facility] #: [id number] [facility]
[2018-09-14] MEDS ORDERED: Morphine INJ* 2 MG/ML 1 ML SYRINGE (TWO MG - NEW SYRINGE VERSION) IV PRN (23:22)
[2018-09-14] MEDS ORDERED: Morphine VIAL* 4 MG/ML VIAL (1 ml vial) ONE (23:35)
[2018-09-15] MEDS ORDERED: Sodium Citrate/Citric Acid* 15 ML UDC PO PRN (00:01)
[2018-09-15 07:30] LABS: Hematocrit 27 % (35-47); Hemoglobin 8.2 g/dl (12.0-16.0); Mean Corpuscular HGB Conc 30 g/dl (31-36); Mean Corpuscular Hemoglobin 20 pg (27-31); Mean Corpuscular Volume 65 fL (80-97); Mean Platelet Volume 8.4 fL (7.4-10.4); Platelet Count 452 10^3/ul (150-450); Red Blood Count 4.22 10^6/ul (4.00-5.40); Red Cell Distribution Width 21 % (10.5-15); White Blood Count 4.8 10^3/ul (3.5-10.8)
[2018-09-15 07:50] LABS: Calcium 7.6 mg/dL (8.6-10.3); EGFR African American 82.1 (>60); EGFR Non-African American 67.8 (>60); Potassium 3.5 mmol/L (3.5-5.0)
--- NOTE | 2018-09-15 08:44 | PN ---
Progress Note - Progress Note Date of Service: 09/15/18 SOAP: Subjective: []no complaints Objective: [] abdomen benign Assessment: [] stable, sigmoid tumor, plan for surgery later this morning Plan: []laparotomy, colectomy, discussed with her brother Tuesday who has given consent
[2018-09-15] MEDS ORDERED: NS 0.9% 1000 ML** 1,000 ML IV SCH (09:00)
[2018-09-15] MEDS ORDERED: Famotidine IV* 10 MG/ML 2 ML (20 mg) IV ONE (09:00)
[2018-09-15] MEDS ORDERED: DiMENhydriNATE IV* 50 MG/ML VIAL IV PUSH ONE (09:00)
[2018-09-15] MEDS: Sertraline* 100 MG TAB PO SCH (09:07)
[2018-09-15] MEDS: Levothyroxine TAB* 125 MCG TAB PO SCH (09:07)
[2018-09-15] MEDS: Insulin LISPRO* 1 UNITS UNIT SUBCUT SCH ×4 (09:07→21:49)
[2018-09-15] MEDS: Pantoprazole TAB * 40 MG TAB PO SCH (09:07)
[2018-09-15 09:28] LABS: INR 1.17 (0.77-1.02)
[2018-09-15] MEDS ORDERED: Famotidine IV* 10 MG/ML 2 ML (20 mg) ONE (09:39)
[2018-09-15] MEDS ORDERED: DiMENhydriNATE IV* 50 MG/ML VIAL ONE (09:39)
[2018-09-15] MEDS ORDERED: Sugammadex * 200 MG/2 ML VIAL IV PUSH ONE (09:40)
[2018-09-15] MEDS ORDERED: Clindamycin 900 MG/D5W BAG(*) 900 MG/50 ML BAG IVPB ONE ×2 (09:40→11:00)
[2018-09-15] MEDS ORDERED: Rocuronium* 10 MG/ML VIAL ONE (09:41)
[2018-09-15] MEDS ORDERED: fentaNYL* 50 MCG/ML 5 ML VIAL (250 MCG VIAL) ONE (09:42)
[2018-09-15] MEDS ORDERED: Propofol* 10 MG/ML 20 ML BTL ONE (09:43)
[2018-09-15] MEDS ORDERED: Gentamicin ADULT (*) 250 MG in NS 0.9% 100 ML* 100 ML IVPB ONE (10:00)
[2018-09-15] MEDS ORDERED: fentaNYL* 50 MCG/ML 2 ML VIAL (100 MCG VIAL) ONE (10:55)
[2018-09-15] MEDS ORDERED: Ketorolac INJ* 30 MG/ML 1 ML VIAL ONE (11:34)
[2018-09-15] MEDS ORDERED: Lidocaine 2% PF * 5 ML VIAL ONE (11:34)
[2018-09-15] MEDS ORDERED: Ondansetron INJ* 2 MG/ML VIAL ONE (11:34)
[2018-09-15] MEDS ORDERED: DiMENhydriNATE IV* 50 MG/ML VIAL IV PUSH PRN (11:38)
[2018-09-15] MEDS ORDERED: Naloxone* 0.4 MG/ML 1 ML VIAL IV PRN (11:38)
[2018-09-15] MEDS ORDERED: HYDROmorphone INJ1* 1 MG/ML SYRINGE IV PRN (11:38)
[2018-09-15] MEDS ORDERED: Bacitracin OINTMENT* 0.5% 0.5 oz TUBE ONE (12:03)
--- NOTE | 2018-09-15 12:19 | OP ---
Operative Report - Blank - Operative Report Date of Operation: 09/15/18 Note: Brief Operative Note Preop Dx: colon cancer Postop Dx: same Procedure: exploratory laparotomy; sigmoid colon resection; lysis of adhesions; end-colostomy Anesthesia: SERAFIN Surgeon: Gay Riffler Tender: SANTOSH Yousif; VANE Biswas Fluids: 1600 ml RL EBL: 100 ml Specimen: sigmoid colon Drains: none Findings: dictated
[2018-09-15] MEDS ORDERED: HYDROmorphone INJ1* 1 MG/ML SYRINGE ONE (12:43)
[2018-09-15] MEDS ORDERED: Insulin LISPRO* 1 UNITS UNIT SUBCUT ONE (12:53)
[2018-09-15] MEDS: Lactated Ringers 1000 ML Bag* 1,000 ML IV SCH ×2 (14:16→21:43)
[2018-09-15] MEDS ORDERED: Morphine VIAL* 10 MG/ML 1 ML VIAL IV PRN ×2 (15:18→15:19)
--- NOTE | 2018-09-15 15:57 | PN ---
Subjective Date of Service: 09/15/18 Interval History: Pt seen and examined. Meds and labs reviewed. S/P cystoscopy, BL retrogrades, BL ureteral stent placement POD#1; and recent Exp. Lap; sigmoid resection; lysis of adhesions; end-colostomy placement POD #0 CC: N/A ROS: Unable to reliably obtain 14 point ROS given recent sedation and hx of developmental delay PHYSICAL EXAM: GEN APPEARANCE: Awake, not in acute distress HEENT: NC/AT, PERRLA, moist oral mucosa, (-) throat erythema NECK: Soft, supple, (-) cervical LAD, (-)JVD HEART: S1S2 WNL, RRR, No MRG CHEST: CTA, BL, GAE, No W/R/R ABD: Soft, ND/NT, Sx incision, cdi, (+)colostomy bag in place, NABS 4x Q EXT: No C/C/E SKIN: Warm to touch PSYCH: No active psychosis, hallucinations, depression, SI/HI Objective Active Medications: Acetaminophen (Tylenol Tab*) 650 mg PO Q4H PRN PRN Reason: Pain Or Temperature >101 F Dextrose (D50w Syringe 50 Ml*) 12.5 gm IV PUSH .FOR FS < 60 - SS PRN PRN Reason: FS < 60 Famotidine (Pepcid Iv*) 20 mg IV Q12HR [facility] Guaifenesin (Robitussin*) 10 ml PO Q6HR PRN PRN Reason: COUGH Heparin Sodium (Porcine) (Heparin Vial(*)) 5,000 units SUBCUT Q8HR [facility] Sodium Chloride (Ns 0.9% 1000 Ml*) 1,000 mls @ 75 mls/hr IV PER RATE [facility] Lactated Ringer's (Lactated Ringers 1000 Ml Bag*) 1,000 mls @ 150 mls/hr IV PER RATE [facility] Last Admin: 09/15/18 14:16 Dose: 150 mls/hr Insulin Human Lispro (Humalog*) 0 units SUBCUT ACHS [facility]; Protocol Last Admin: 09/15/18 12:54 Dose: 4 units Ketorolac Tromethamine (Toradol Inj*) 30 mg IV Q6H PRN PRN Reason: PAIN Stop: 09/17/18 12:22 Levothyroxine Sodium (Synthroid Tab*) 125 mcg PO 0800 [facility] Last Admin: 09/15/18 09:07 Dose: 125 mcg Morphine Sulfate (Morphine Inj ((Syringe))*) 4 mg IV Q2H PRN PRN Reason: PAIN - MODERATE Morphine Sulfate (Morphine Inj ((Syringe))*) 6 mg IV Q2H PRN PRN Reason: PAIN - SEVERE Ondansetron HCl (Zofran Inj*) 4 mg IV Q4H PRN PRN Reason: NAUSEA/VOMITING Sertraline HCl (Zoloft*) 100 mg PO 0800 [facility] Last Admin: 09/15/18 09:07 Dose: 100 mg Vital Signs - 8 hr 09/15/18 09/15/18 09/15/18 08:15 09:31 12:31 Temperature 97.0 F 97.2 F 97.3 F Pulse Rate 90 93 97 Respiratory 14 16 Rate Blood Pressure 119/65 138/93 114/67 (mmHg) O2 Sat by Pulse 100 98 98 Oximetry 09/15/18 09/15/18 09/15/18 12:35 12:40 12:45 Temperature Pulse Rate 92 89 86 Respiratory 22 20 21 Rate Blood Pressure 109/58 114/63 120/63 (mmHg) O2 Sat by Pulse 98 98 98 Oximetry 09/15/18 09/15/18 09/15/18 12:56 13:00 13:15 Temperature 97.3 F Pulse Rate 83 86 Respiratory 18 20 17 Rate Blood Pressure 133/71 115/74 (mmHg) O2 Sat by Pulse 99 96 Oximetry 09/15/18 09/15/18 09/15/18 13:30 13:45 14:08 Temperature Pulse Rate 87 86 88 Respiratory 18 Rate Blood Pressure 117/75 127/77 119/59 (mmHg) O2 Sat by Pulse 97 97 99 Oximetry 09/15/18 09/15/18 14:10 15:25 Temperature 97.6 F 97.7 F Pulse Rate 88 82 Respiratory 18 18 Rate Blood Pressure 119/59 106/56 (mmHg) O2 Sat by Pulse 99 100 Oximetry Oxygen Devices in Use Now: Nasal Cannula Result Diagrams: 09/15/18 07:04 09/15/18 07:04 Assess/Plan/Problems-Billing Assessment: - Patient Problems (1) Colon adenocarcinoma Current Visit: Yes Status: Acute Code(s): C18.9 - MALIGNANT NEOPLASM OF COLON, UNSPECIFIED SNOMED Code(s): 171577668 Comment: -Invasive -D/W both Nuno Rubin and Isaac yesterday and touched based with Dr. Gray this AM -Appreciate Dr. Norris input and pt for planned exploratory laparotomy w/sigmoid resection and colostomy today that she mentioned Dr. Love would like to first perform cystoscopy w/stent placement; stents are being placed to [place] the ureters so as to avoid them for planned Sx in AM -S/P cystoscopy, BL retrogrades, BL ureteral stent placement to yuliet ureter to avoid them during explore lap done on 09/15/18, POD#1 -S/P Exp. Lap; sigmoid resection; lysis of adhesions; end-colostomy placement POD #0 -Will await biopsy/pathology results (2) Hypotension Current Visit: Yes Status: Acute Comment: -Resolved w/IVF hydration last night -Will continue to monitor post-op with current appropriate BP and MAP (3) Anemia Current Visit: Yes Status: Acute Code(s): D64.9 - ANEMIA, UNSPECIFIED SNOMED Code(s): 864931300 Comment: -B12, and folate levels reassuring -Iron studies suggest LAILA + AOCD as expected -Consider PO supplentations prior to D/C (4) Hypothyroidism Current Visit: Yes Status: Acute Code(s): E03.9 - HYPOTHYROIDISM, UNSPECIFIED SNOMED Code(s): 39165076 Comment: -Continue current levothyroxine -TSH WNL (5) Diabetes 1.5, managed as type 2 Current Visit: Yes Status: Acute Code(s): E13.9 - OTHER SPECIFIED DIABETES MELLITUS WITHOUT COMPLICATIONS SNOMED Code(s): 459903553 Comment: -Well-controlled -Hba1c (08/29/18) = 5.6 -Continue ISS (6) GERD (gastroesophageal reflux disease) Current Visit: Yes Status: Acute Code(s): K21.9 - GASTRO-ESOPHAGEAL REFLUX DISEASE WITHOUT ESOPHAGITIS SNOMED Code(s): 595751950 Comment: -Continue Pantoprazole (7) DVT prophylaxis Current Visit: Yes Status: Acute Code(s): SWT4152 - SNOMED Code(s): 839649376 Comment: -Continue SCDs Status and Disposition: -As above -For PT re-eval in AM
[2018-09-15] MEDS ORDERED: Morphine INJ* 2 MG/ML 1 ML SYRINGE (TWO MG - NEW SYRINGE VERSION) IV PRN ×2 (16:00)
[2018-09-15] MEDS: Ketorolac INJ* 30 MG/ML 1 ML VIAL IV PRN (18:29)
--- NOTE | 2018-09-15 20:44 | OP ---
DATE OF OPERATION: 09/15/18 - ROOM #348 DATE OF : 54 SURGEON: Luigi Rashid MD KILN LOADER: SANTOSH Pickard PRE-OP DIAGNOSIS: Sigmoid colon cancer. POST-OP DIAGNOSIS: Sigmoid colon cancer. OPERATIVE PROCEDURE: Exploratory laparotomy, lysis of adhesions extensive, sigmoid with end colostomy, Nicol's type procedure. INDICATION FOR PROCEDURE: Near obstructing sigmoid colon cancer. Risks of surgery included, but not limited to, bleeding, infection, injury to intraabdominal contents including the bowel, the bladder, ureters and other were discussed with the patient as well as her brother who is the healthcare proxy. She seemed to understand, agreed to the procedure, gave consent, and all questions were answered. DESCRIPTION OF PROCEDURE: The patient was taken to the operating room and placed supine. Preoperative antibiotics had been given. She underwent a preoperative bowel prep. After the successful induction of general endotracheal anesthesia, her old midline incision from a hysterectomy was opened and carried down through the subcutaneous tissue and the fascia was opened using Bovie cautery. Peritoneal cavity was entered. Multiple adhesions were noted in the omentum and the small bowel to the anterior abdominal wall, and these were gently carefully taken down along the avascular plane exposing a redundant sigmoid colon with an obvious tattooing from prior colonoscopy, which was proximal to the tumor. There was a desmoplastic reaction from the sigmoid to the bladder and this was gently taken down using cautery and finger fracture type technique. The distal sigmoid/rectum was isolated and divided using a TL60 stapler. The proximal sigmoid colon was also isolated from the mesentery and divided. The mesentery was taken with a LigaSure device. The specimen was sent for permanent section to Pathology. The abdomen was irrigated, hemostasis was intact. The omentum was gently freed from the small bowel and transverse colon and allowed to fall into the pelvis covering the defect. I was able to locate the left and right ureter through palpation with the stents and were far from the surgical field. The midline fascia was then closed using a running #1 PDS suture coming from either end and tied in the middle. The skin was closed with edilberto after the wound was irrigated. Just prior to this, an ostomy site was chosen in the left abdomen. Skin was excised. The subcutaneous fat was divided. The anterior fascia was divided. The muscle was split and the peritoneal cavity was entered and the proximal sigmoid/distal descending colon was brought out for the colostomy. Once the midline fascia was closed, skin was closed. The ostomy was matured using 4-0 PDS suture. A bag was applied. She tolerated the procedure well. EBL was approximately 100 cc. She was extubated and taken to recovery room in stable condition. [id number]/[facility] #: [id number] FOSTER
[2018-09-15] MEDS: Famotidine IV* 10 MG/ML 2 ML (20 mg) IV SCH (21:50)
[2018-09-15] MEDS: Heparin VIAL(*) 5000 UNITS/ML VIAL (FIVE THOUSAND) SUBCUT SCH (21:51)
[2018-09-16] MEDS: Ketorolac INJ* 30 MG/ML 1 ML VIAL IV PRN ×2 (01:04→10:12)
[2018-09-16] MEDS: Lactated Ringers 1000 ML Bag* 1,000 ML IV SCH ×2 (04:21→15:07)
[2018-09-16 05:56] LABS: ABS Basophils 0 10^3/ul (0-0.2); ABS Eosinophils 0 10^3/ul (0-0.6); ABS Lymphocytes 0.6 10^3/ul (1.0-4.8); ABS Monocytes 0.7 10^3/ul (0-0.8); ABS Neutrophils 6.3 10^3/ul (1.5-7.7); ABS Nucleated RBC 0 10^3/ul; Eosinophil % 0 %; Hematocrit 24 % (35-47); Hemoglobin 7.4 g/dl (12.0-16.0); Lymphocyte % 7.7 %; Mean Corpuscular HGB Conc 30 g/dl (31-36); Mean Corpuscular Hemoglobin 20 pg (27-31); Mean Corpuscular Volume 65 fL (80-97); Mean Platelet Volume 7.5 fL (7.4-10.4); Nucleated Red Blood Cells % 0; Platelet Count 435 10^3/ul (150-450); Red Blood Count 3.76 10^6/ul (4.00-5.40); Red Cell Distribution Width 21 % (10.5-15); White Blood Count 7.6 10^3/ul (3.5-10.8)
[2018-09-16 06:08] LABS: Albumin 2.2 g/dL (3.2-5.2); Albumin/Globulin Ratio 0.9 (1-3); BUN/Creatinine Ratio 6.3 (8-20); Calcium 7.8 mg/dL (8.6-10.3); EGFR African American 58.9 (>60); EGFR Non-African American 48.7 (>60); Globulin 2.5 g/dL (2-4); Magnesium 1.6 mg/dL (1.9-2.7); Phosphorus 3.6 mg/dL (2.5-5.0); Potassium 3.7 mmol/L (3.5-5.0); Total Bilirubin 0.4 mg/dL (0.2-1.0); Total Protein 4.7 g/dL (6.4-8.9)
[2018-09-16] MEDS ORDERED: NS 0.9% IV ONE (06:23)
[2018-09-16] MEDS: Heparin VIAL(*) 5000 UNITS/ML VIAL (FIVE THOUSAND) SUBCUT SCH (06:32)
[2018-09-16 06:48] LABS: INR 1.4 (0.77-1.02)
[2018-09-16] MEDS: Levothyroxine TAB* 125 MCG TAB PO SCH (06:51)
[2018-09-16] MEDS: Famotidine IV* 10 MG/ML 2 ML (20 mg) IV SCH ×2 (08:09→22:20)
[2018-09-16] MEDS: Sertraline* 100 MG TAB PO SCH (08:11)
[2018-09-16] MEDS ORDERED: Magnesium Sulf 4 GM/100 ML IV* 4,000 MG/100 ML BAG IVPB ONE (09:00)
[2018-09-16] MEDS: Insulin LISPRO* 1 UNITS UNIT SUBCUT SCH ×4 (09:41→22:35)
--- NOTE | 2018-09-16 10:26 | PN ---
Progress Note - Progress Note Date of Service: 09/16/18 SOAP: Subjective: Awake and alert-pleasant States she is having minimal pain No SOB or CP Required fluid overnight for low urine output Objective: Temp Pulse Resp BP Pulse Ox 98.2 F 93 14 114/55 94 09/16/18 03:53 09/16/18 07:53 09/16/18 07:53 09/16/18 07:53 09/16/18 07:53 Intake & Output 09/14/18 09/15/18 09/16/18 09/17/18 06:59 06:59 06:59 06:59 Intake Total 4302 4084 5424 Output Total 1300 1575 Balance 4302 2784 3849 Intake: IV Fluids 2101 1984 4144 LR 1150 2244 Lactated Ringers 1700 NS (0.9%) 2102 834 200 Oral 2200 2100 1280 Output: [place] 1000 1575 Residual 300 [place] 16 Fr 300 Other: Estimated Void Large Large # Bowel Movements 0 1 0 Estimated Stool Amount Small Large # Voids 1 1 PEX: Comfortable-awake and alert Lungs with decreased breath sounds at the bases Abd is soft and slightly distended. Bowel sounds are present, some higher pitched Dressing intact. Ostomy is pink and edematous Laboratory Results - last 24 hr 09/15/18 09/15/18 09/15/18 12:36 17:28 21:42 WBC RBC Hgb Hct MCV MCH MCHC RDW Plt Count MPV Neut % (Auto) Lymph % (Auto) [place] % (Auto) Eos % (Auto) Baso % (Auto) Absolute Neuts (auto) Absolute Lymphs (auto) Absolute Monos (auto) Absolute Eos (auto) Absolute Basos (auto) Absolute Nucleated RBC Nucleated RBC % INR (Anticoag Therapy) Sodium Potassium Chloride Carbon Dioxide Anion Gap BUN Creatinine Est GFR ( Amer) Est GFR (Non-Af Amer) BUN/Creatinine Ratio Glucose POC Glucose (mg/dL) 241 H 206 H 210 H Calcium Phosphorus Magnesium Total Bilirubin AST ALT Alkaline Phosphatase Total Protein Albumin Globulin Albumin/Globulin Ratio Blood Type Antibody Screen Crossmatch 09/16/18 09/16/18 09/16/18 05:20 05:20 05:20 WBC 7.6 RBC 3.76 L Hgb 7.4 L Hct 24 L MCV 65 L MCH 20 L MCHC 30 L RDW 21 H Plt Count 435 MPV 7.5 Neut % (Auto) 83.0 Lymph % (Auto) 7.7 [place] % (Auto) 9.0 Eos % (Auto) 0 Baso % (Auto) 0.3 Absolute Neuts (auto) 6.3 Absolute Lymphs (auto) 0.6 L Absolute Monos (auto) 0.7 Absolute Eos (auto) 0 Absolute Basos (auto) 0 Absolute Nucleated RBC 0 Nucleated RBC % 0 INR (Anticoag Therapy) Sodium 140 Potassium 3.7 Chloride 112 H Carbon Dioxide 23 Anion Gap 5 BUN 7 Creatinine 1.12 H Est GFR ( Amer) 58.9 Est GFR (Non-Af Amer) 48.7 BUN/Creatinine Ratio 6.3 L Glucose 159 H POC Glucose (mg/dL) Calcium 7.8 L Phosphorus 3.6 Magnesium 1.6 L Total Bilirubin 0.40 AST 10 L ALT 6 L Alkaline Phosphatase 51 Total Protein 4.7 L Albumin 2.2 L Globulin 2.5 Albumin/Globulin Ratio 0.9 L Blood Type B Positive Antibody Screen Negative Crossmatch See Detail 09/16/18 09/16/18 06:37 08:09 WBC RBC Hgb Hct MCV MCH MCHC RDW Plt Count MPV Neut % (Auto) Lymph % (Auto) [place] % (Auto) Eos % (Auto) Baso % (Auto) Absolute Neuts (auto) Absolute Lymphs (auto) Absolute Monos (auto) Absolute Eos (auto) Absolute Basos (auto) Absolute Nucleated RBC Nucleated RBC % INR (Anticoag Therapy) 1.40 H Sodium Potassium Chloride Carbon Dioxide Anion Gap BUN Creatinine Est GFR ( Amer) Est GFR (Non-Af Amer) BUN/Creatinine Ratio Glucose POC Glucose (mg/dL) 175 H Calcium Phosphorus Magnesium Total Bilirubin AST ALT Alkaline Phosphatase Total Protein Albumin Globulin Albumin/Globulin Ratio Blood Type Antibody Screen Crossmatch Assessment: POD#1 s/p exlap sigmoid colon resection and end colostomy for near obstructing colon cancer- [id number] Low urine output, BP low Elevated Cr Plan: Transfuse 1 U PRBC-don't believe active bleeding at present however but with anemia and expected continued fluid requirements will give blood. Transfusion discussed with son and consent obtained. Hold subq heparin H2 laith OOB, pulmonary toilet Continue montes de oca catheter-ureteral stents remain in, urine blood tinged. Recheck labs later today and in AM
--- NOTE | 2018-09-16 15:04 | PN ---
Subjective Date of Service: 09/16/18 Interval History: Pt seen and examined. Meds and labs reviewed. CC: N/A ROS: Denied [place]/dizziness, F/C, N/V, CP, SOB, increased cough, sputum production , abd pain, diarrhea, constipation, dysuria, myalgias, arthralgias, throat pain , and new skin lesions. The rest of the 14 point ROS are unremarkable. PHYSICAL EXAM: GEN APPEARANCE: Awake, not in acute distress HEENT: NC/AT, PERRLA, moist oral mucosa, (-) throat erythema NECK: Soft, supple, (-) cervical LAD, (-)JVD HEART: S1S2 WNL, RRR, No MRG CHEST: CTA, BL, GAE, No W/R/R ABD: Soft, ND/NT, NABS 4x Q, (+)Colostomy in place w/brown stools in bag, surgical midline incision, cdi EXT: No C/C/E SKIN: Warm to touch PSYCH: No active psychosis, hallucinations, depression, SI/HI Objective Active Medications: Acetaminophen (Tylenol Tab*) 650 mg PO Q4H PRN PRN Reason: Pain Or Temperature >101 F Dextrose (D50w Syringe 50 Ml*) 12.5 gm IV PUSH .FOR FS < 60 - SS PRN PRN Reason: FS < 60 Famotidine (Pepcid Iv*) 20 mg IV Q12HR [facility] Last Admin: 09/16/18 08:09 Dose: 20 mg Guaifenesin (Robitussin*) 10 ml PO Q6HR PRN PRN Reason: COUGH Lactated Ringer's (Lactated Ringers 1000 Ml Bag*) 1,000 mls @ 150 mls/hr IV PER RATE [facility] Last Admin: 09/16/18 04:21 Dose: 150 mls/hr Insulin Human Lispro (Humalog*) 0 units SUBCUT ACHS [facility]; Protocol Last Admin: 09/16/18 13:51 Dose: 4 units Ketorolac Tromethamine (Toradol Inj*) 30 mg IV Q6H PRN PRN Reason: PAIN Stop: 09/17/18 12:22 Last Admin: 09/16/18 10:12 Dose: 30 mg Levothyroxine Sodium (Synthroid Tab*) 125 mcg PO 0800 [facility] Last Admin: 09/16/18 06:51 Dose: 125 mcg Morphine Sulfate (Morphine Inj ((Syringe))*) 4 mg IV Q2H PRN PRN Reason: PAIN - MODERATE Morphine Sulfate (Morphine Inj ((Syringe))*) 6 mg IV Q2H PRN PRN Reason: PAIN - SEVERE Ondansetron HCl (Zofran Inj*) 4 mg IV Q4H PRN PRN Reason: NAUSEA/VOMITING Sertraline HCl (Zoloft*) 100 mg PO 0800 BOO Last Admin: 09/16/18 08:11 Dose: 100 mg Vital Signs - 8 hr 09/16/18 09/16/18 09/16/18 07:53 11:29 12:26 Temperature 98.3 F 97.3 F Pulse Rate 93 88 87 Respiratory 14 20 16 Rate Blood Pressure 114/55 101/50 87/42 (mmHg) O2 Sat by Pulse 94 95 96 Oximetry Oxygen Devices in Use Now: Nasal Cannula Result Diagrams: 09/16/18 05:20 09/16/18 05:20 Assess/Plan/Problems-Billing Assessment: - Patient Problems (1) Colon adenocarcinoma Current Visit: Yes Status: Acute Code(s): C18.9 - MALIGNANT NEOPLASM OF COLON, UNSPECIFIED SNOMED Code(s): 460172465 Comment: -Invasive -S/P cystoscopy, BL retrogrades, BL ureteral stent placement to yuliet ureter to avoid them during explore lap done on 09/15/18, POD#2 -S/P Exp. Lap; sigmoid resection; lysis of adhesions; end-colostomy placement POD #1 -Will await biopsy/pathology results (2) Hypotension Current Visit: Yes Status: Acute Comment: -H/H did have some slight decrease today and will be pre-emptively transfused w/ 1 unit PRBC given H/H very close to threshold -BP clarified w/nursing staff to be obtained manually if BP</=90/60, then call MD/E [employer] ARCHITECT if consistent -Will consider placing pt in IVF---awaiting repeat VS given pt currently being transfused -Will continue to monitor post-op with current appropriate BP and MAP (3) Anemia Current Visit: Yes Status: Acute Code(s): D64.9 - ANEMIA, UNSPECIFIED SNOMED Code(s): 634386143 Comment: -To transfuse pt w/1 unit PRBC todayagree as d/w Dr. Geneva -B12, and folate levels reassuring -Iron studies suggest LAILA + AOCD as expected -Consider PO supplentations prior to D/C (4) Hypothyroidism Current Visit: Yes Status: Acute Code(s): E03.9 - HYPOTHYROIDISM, UNSPECIFIED SNOMED Code(s): 62053561 Comment: -Continue current levothyroxine -TSH WNL (5) Diabetes 1.5, managed as type 2 Current Visit: Yes Status: Acute Code(s): E13.9 - OTHER SPECIFIED DIABETES MELLITUS WITHOUT COMPLICATIONS SNOMED Code(s): 925581288 Comment: -Well-controlled -Hba1c (08/29/18) = 5.6 -Continue ISS (6) GERD (gastroesophageal reflux disease) Current Visit: Yes Status: Acute Code(s): K21.9 - GASTRO-ESOPHAGEAL REFLUX DISEASE WITHOUT ESOPHAGITIS SNOMED Code(s): 846133874 Comment: -Continue Pantoprazole (7) DVT prophylaxis Current Visit: Yes Status: Acute Code(s): PGE4599 - SNOMED Code(s): 758019224 Comment: -Continue SCDs Status and Disposition: -As above -For PT re-eval in AM
[2018-09-16] MEDS ORDERED: NS 0.9% 1000 ML** 1,000 ML IV SCH ×2 (15:15→16:10)
[2018-09-16] MEDS ORDERED: NS 0.9% 500 ML* 500 ML IV ONE (16:10)
[2018-09-16 18:12] LABS: Hematocrit 22 % (35-47); Hemoglobin 6.5 g/dl (12.0-16.0)
--- NOTE | 2018-09-16 21:03 | PN ---
Progress Note - Progress Note Date of Service: 09/16/18 SOAP: Subjective: Pt with poor urine output and relative low BP. No significant tachycardia She received on unit or PRBC's today-H/H after transfusion down to 6.5 Objective: HR-90's Last SBP 105 u/O about 200 cc last shift, darker in color She is awake and alert-speaking clearly and is comfortable Lungs are clear Abd is soft and distended. Dressing intact. Ostomy pink with large amount of brown fluid in bag Laboratory Last Values WBC 7.6 10^3/ul (3.5-10.8) 09/16/18 05:20 RBC 3.76 10^6/ul (4.00-5.40) L 09/16/18 05:20 Hgb 6.5 g/dl (12.0-16.0) L 09/16/18 18:04 Hct 22 % (35-47) L 09/16/18 18:04 MCV 65 fL (80-97) L 09/16/18 05:20 MCH 20 pg (27-31) L 09/16/18 05:20 MCHC 30 g/dl (31-36) L 09/16/18 05:20 RDW 21 % (10.5-15) H 09/16/18 05:20 Plt Count 435 10^3/ul (150-450) 09/16/18 05:20 MPV 7.5 fL (7.4-10.4) 09/16/18 05:20 Neut % (Auto) 83.0 % 09/16/18 05:20 Lymph % (Auto) 7.7 % 09/16/18 05:20 [place] % (Auto) 9.0 % 09/16/18 05:20 Eos % (Auto) 0 % 09/16/18 05:20 Baso % (Auto) 0.3 % 09/16/18 05:20 Absolute Neuts (auto) 6.3 10^3/ul (1.5-7.7) 09/16/18 05:20 Absolute Lymphs (auto) 0.6 10^3/ul (1.0-4.8) L 09/16/18 05:20 Absolute Monos (auto) 0.7 10^3/ul (0-0.8) 09/16/18 05:20 Absolute Eos (auto) 0 10^3/ul (0-0.6) 09/16/18 05:20 Absolute Basos (auto) 0 10^3/ul (0-0.2) 09/16/18 05:20 Absolute Nucleated RBC 0 10^3/ul 09/16/18 05:20 Nucleated RBC % 0 09/16/18 05:20 INR (Anticoag Therapy) 1.40 (0.77-1.02) H 09/16/18 06:37 Sodium 140 mmol/L (135-145) 09/16/18 05:20 Potassium 3.7 mmol/L (3.5-5.0) 09/16/18 05:20 Chloride 112 mmol/L (101-111) H 09/16/18 05:20 Carbon Dioxide 23 mmol/L (22-32) 09/16/18 05:20 Anion Gap 5 mmol/L (2-11) 09/16/18 05:20 BUN 7 mg/dL (6-24) 09/16/18 05:20 Creatinine 1.12 mg/dL (0.51-0.95) H 09/16/18 05:20 Est GFR ( Amer) 58.9 (>60) 09/16/18 05:20 Est GFR (Non-Af Amer) 48.7 (>60) 09/16/18 05:20 BUN/Creatinine Ratio 6.3 (8-20) L 09/16/18 05:20 Glucose 159 mg/dL (70-100) H 09/16/18 05:20 POC Glucose (mg/dL) 199 mg/dL (70-100) H 09/16/18 16:59 Calcium 7.8 mg/dL (8.6-10.3) L 09/16/18 05:20 Phosphorus 3.6 mg/dL (2.5-5.0) 09/16/18 05:20 Magnesium 1.6 mg/dL (1.9-2.7) L 09/16/18 05:20 Iron < 17 ug/dL (50-212) L 09/14/18 05:21 TIBC 293 mcg/dL (250-450) 09/14/18 05:21 % Saturation 6 % (15-55) L 09/14/18 05:21 Unsat Iron Binding < 278 ug/dL 09/14/18 05:21 Transferrin 209 mg/dL (203-362) 09/14/18 05:21 Ferritin 32.5 ng/mL (11-307) 09/14/18 05:21 Total Bilirubin 0.40 mg/dL (0.2-1.0) 09/16/18 05:20 AST 10 U/L (13-39) L 09/16/18 05:20 ALT 6 U/L (7-52) L 09/16/18 05:20 Alkaline Phosphatase 51 U/L (34-104) 09/16/18 05:20 Total Protein 4.7 g/dL (6.4-8.9) L 09/16/18 05:20 Albumin 2.2 g/dL (3.2-5.2) L 09/16/18 05:20 Globulin 2.5 g/dL (2-4) 09/16/18 05:20 Albumin/Globulin Ratio 0.9 (1-3) L 09/16/18 05:20 Triglycerides 89 mg/dL 09/14/18 05:21 Cholesterol 87 mg/dL 09/14/18 05:21 LDL Cholesterol 44 mg/dL 09/14/18 05:21 HDL Cholesterol 25.4 mg/dL 09/14/18 05:21 Carcinoembryonic Ag 41.6 ng/mL (0.1-5.0) H 09/12/18 17:38 Vitamin B12 1021 pg/mL (180-914) H 09/14/18 05:21 Folate 7.23 ng/mL (>3.99) 09/14/18 05:21 TSH 3.20 mcIU/mL (0.34-5.60) 09/14/18 05:21 Blood Type B Positive 09/16/18 05:20 Antibody Screen Negative 09/16/18 05:20 Crossmatch See Detail 09/16/18 05:20 Assessment: S/p resection of sigmoid colon cancer with end colostomy [id number]-[id number]-[id number] blood loss with hemorrhage as above Plan: Will transfuse 2 more units of PRBC's tonight Follow vitals and urine output If no improvement will require return to OR for exploration Attempted to contact and discuss with Dr. Rashid--unable to contact, will attempt later to discuss care. Recheck labs in the AM
[2018-09-16] MEDS: Acetaminophen TAB* 325 MG PO PRN (22:15)
[2018-09-17 06:10] LABS: INR 1.2 (0.77-1.02)
[2018-09-17 06:25] LABS: Hematocrit 29 % (35-47); Mean Corpuscular HGB Conc 31 g/dl (31-36); Mean Corpuscular Hemoglobin 21 pg (27-31); Mean Corpuscular Volume 68 fL (80-97); Mean Platelet Volume 7.6 fL (7.4-10.4); Platelet Count 443 10^3/ul (150-450); Red Blood Count 4.25 10^6/ul (4.00-5.40); Red Cell Distribution Width 23 % (10.5-15); White Blood Count 8.2 10^3/ul (3.5-10.8)
[2018-09-17 06:43] LABS: EGFR African American 67.1 (>60); EGFR Non-African American 55.5 (>60); Magnesium 2.3 mg/dL (1.9-2.7); Potassium 3.8 mmol/L (3.5-5.0)
[2018-09-17 07:14] LABS: ABS Basophils 0 10^3/ul (0-0.2); ABS Eosinophils 0 10^3/ul (0-0.6); ABS Lymphocytes 0.8 10^3/ul (1.0-4.8); ABS Monocytes 0.6 10^3/ul (0-0.8); ABS Neutrophils 6.7 10^3/ul (1.5-7.7); ABS Nucleated RBC 0 10^3/ul; Eosinophil % 0 %; Microcytosis 1+; Nucleated Red Blood Cells % 0; Polychromasia 1+
[2018-09-17] MEDS: Levothyroxine TAB* 125 MCG TAB PO SCH (07:31)
[2018-09-17] MEDS: Insulin LISPRO* 1 UNITS UNIT SUBCUT SCH ×4 (07:31→21:51)
--- NOTE | 2018-09-17 08:38 | PN ---
Subjective Date of Service: 09/17/18 Interval History: HD #6 on 09/17/18 68 yo F with intellectual disability at baseline, resides in SNF, HTN, DM who presented for ongoing weight loss and LAILA found to have T4 colon Ca s/p ex lap and colostomy. Overnight no acute events, VSS, 98/59-109/63, HR 67, afebrole, satting well on RA. Labs this AM anemia improved s/p 2U PRBC 05/20 appropriate response, Glu elevated. This morning seen in bed with sister in law Megan at bedside, pt is oriented to name and place, not to situation, slowed responses c/w her baseline per Megan. Denies pain or complaints, would like apple juice, otherwise reports no issues. ROS CP, SOB, GI, complaints neg. Objective Active Medications: Acetaminophen (Tylenol Tab*) 650 mg PO Q4H PRN PRN Reason: Pain Or Temperature >101 F Last Admin: 09/16/18 22:15 Dose: 325 mg Dextrose (D50w Syringe 50 Ml*) 12.5 gm IV PUSH .FOR FS < 60 - SS PRN PRN Reason: FS < 60 Famotidine (Pepcid Iv*) 20 mg IV Q12HR [facility] Last Admin: 09/16/18 22:20 Dose: 20 mg Guaifenesin (Robitussin*) 10 ml PO Q6HR PRN PRN Reason: COUGH Lactated Ringer's (Lactated Ringers 1000 Ml Bag*) 1,000 mls @ 150 mls/hr IV PER RATE [facility] Last Admin: 09/16/18 15:07 Dose: 150 mls/hr Insulin Human Lispro (Humalog*) 0 units SUBCUT [facility]; Protocol Last Admin: 09/17/18 07:31 Dose: 2 units Ketorolac Tromethamine (Toradol Inj*) 30 mg IV Q6H PRN PRN Reason: PAIN Stop: 09/17/18 12:22 Last Admin: 09/16/18 10:12 Dose: 30 mg Levothyroxine Sodium (Synthroid Tab*) 125 mcg PO 0800 [facility] Last Admin: 09/17/18 07:31 Dose: 125 mcg Morphine Sulfate (Morphine Inj ((Syringe))*) 4 mg IV Q2H PRN PRN Reason: PAIN - MODERATE Last Admin: 01/26/19 22:26 Dose: 4 mg Morphine Sulfate (Morphine Inj ((Syringe))*) 6 mg IV Q2H PRN PRN Reason: PAIN - SEVERE Ondansetron HCl (Zofran Inj*) 4 mg IV Q4H PRN PRN Reason: NAUSEA/VOMITING Sertraline HCl (Zoloft*) 100 mg PO 0800 BOO Last Admin: 09/16/18 08:11 Dose: 100 mg Vital Signs - 8 hr 09/17/18 09/17/18 09/17/18 02:32 02:54 05:18 Temperature 98.5 F 98.4 F Pulse Rate 84 85 73 Respiratory 20 20 Rate Blood Pressure 104/60 94/58 109/63 (mmHg) O2 Sat by Pulse 93 93 96 Oximetry 09/17/18 09/17/18 05:57 07:59 Temperature 98.0 F Pulse Rate 76 Respiratory 16 Rate Blood Pressure 98/59 (mmHg) O2 Sat by Pulse 95 Oximetry Oxygen Devices in Use Now: None Appearance: Obese woman in NAD sitting in bed Eyes: No Scleral Icterus, PERRLA Ears/Nose/Mouth/Throat: NL Teeth, Lips, Gums, - - Dry lips MMM Neck: NL Appearance and Movements; NL JVP Respiratory: Symmetrical Chest Expansion and Respiratory Effort, Clear to Auscultation Cardiovascular: NL Sounds; No Murmurs; No JVD, RRR Abdominal: - - Distended abdomen, soft, NT, ostomy in place with scant liquid stool Lymphatic: No Cervical Adenopathy Extremities: No Edema Skin: No Rash or Ulcers Neurological: - - Oriented to self and place, delayed response Lines/Tubes/Other Access: Clean, Dry and Intact [place] - In place, draining clear yellow urine Result Diagrams: 09/17/18 05:33 09/17/18 05:33 Assess/Plan/Problems-Billing Assessment: 68 yo F with intellectual disability at baseline, resides in SNF, HTN, DM who presented for ongoing weight loss and LAILA found to have T4 colon Ca s/p ex lap and colostomy. - Patient Problems (1) Colon adenocarcinoma Current Visit: Yes Status: Acute Code(s): C18.9 - MALIGNANT NEOPLASM OF COLON, UNSPECIFIED SNOMED Code(s): 411766737 Comment: -Invasive -S/P cystoscopy, BL retrogrades, BL ureteral stent placement to yuliet ureter to avoid them during explore lap done on 09/15/18, POD#3 on -S/P Exp. Lap; sigmoid resection; lysis of adhesions; end-colostomy placement POD #2 on 09/17 -Will await biopsy/pathology results (2) Anemia Current Visit: Yes Status: Acute Code(s): D64.9 - ANEMIA, UNSPECIFIED SNOMED Code(s): 498722011 Comment: -s/p I U PRBC on 09/16, appropriate response -B12, and folate levels reassuring -Iron studies suggest LAILA + AOCD as expected -Consider PO supplentations prior to D/C (3) Diabetes 1.5, managed as type 2 Current Visit: Yes Status: Acute Code(s): E13.9 - OTHER SPECIFIED DIABETES MELLITUS WITHOUT COMPLICATIONS SNOMED Code(s): 531822692 Comment: -Well-controlled at baseline -Hba1c (08/29/18) = 5.6 -Continue ISS, holding home lantus, as PO picks up consider restarting 1/2 dose 10U (4) Hypothyroidism Current Visit: Yes Status: Acute Code(s): E03.9 - HYPOTHYROIDISM, UNSPECIFIED SNOMED Code(s): 84546838 Comment: -Continue current levothyroxine -TSH WNL (5) Intellectual disability Current Visit: Yes Status: Acute Code(s): F79 - UNSPECIFIED INTELLECTUAL DISABILITIES SNOMED Code(s): 408077267 Comment: At baseline, HCProxy sister in law Megan (6) DVT prophylaxis Current Visit: Yes Status: Acute Code(s): JDF5949 - SNOMED Code(s): 997914695 Comment: -Continue SCDs, consider lovenox unless contraindication given ongoing onc Status and Disposition: -As above, also would remove montes de oca today -For PT re-eval in AM
--- NOTE | 2018-09-17 10:30 | PN ---
Progress Note - Progress Note Date of Service: 09/17/18 SOAP: Subjective: Awake and alert this morning Minimal pain and tolerating liquids No SOB or CP Urine output improving Objective: Temp Pulse Resp BP Pulse Ox 98.7 F 77 20 103/64 98 09/17/18 08:35 09/17/18 08:35 09/17/18 08:35 09/17/18 08:35 09/17/18 08:35 Intake & Output 09/15/18 09/16/18 09/17/18 09/18/18 06:59 06:59 06:59 06:59 Intake Total 4084 5424 3488 Output Total 1300 1575 400 235 Balance 2784 3849 3088 -235 Intake: IV Fluids 1984 4144 975 LR 1150 2244 675 Lactated Ringers 1700 NS (0.9%) 834 200 Packed Red Blood Cells 300 IVPB 2031 Magnesium 140 NS (0.9%) 1000 Packed Red Blood Cells 548 Platelets 343 Oral 2100 1280 240 Packed Cells 242 Output: [place] 1000 1575 200 125 Residual 300 [place] 16 Fr 300 Colostomy 200 110 Other: Estimated Void Large # Bowel Movements 1 0 0 Estimated Stool Amount Large # Voids 1 PEX: Comfortable Awake and alert and verbal Lungs clear with decreased breath sounds at the bases Abd is soft and distended. Bowel sounds are present. Ostomy pink and edematous with brown fluid in bag Urine concentrated Laboratory Last Values WBC 8.2 10^3/ul (3.5-10.8) 09/17/18 05:33 RBC 4.25 10^6/ul (4.00-5.40) 09/17/18 05:33 Hgb 9.0 g/dl (12.0-16.0) L 09/17/18 05:33 Hct 29 % (35-47) L 09/17/18 05:33 MCV 68 fL (80-97) L 09/17/18 05:33 MCH 21 pg (27-31) L 09/17/18 05:33 MCHC 31 g/dl (31-36) 09/17/18 05:33 RDW 23 % (10.5-15) H 09/17/18 05:33 Plt Count 443 10^3/ul (150-450) 09/17/18 05:33 MPV 7.6 fL (7.4-10.4) 09/17/18 05:33 Neut % (Auto) 81.7 % 09/17/18 05:33 Lymph % (Auto) 10.0 % 09/17/18 05:33 [place] % (Auto) 7.7 % 09/17/18 05:33 Eos % (Auto) 0 % 09/17/18 05:33 Baso % (Auto) 0.6 % 09/17/18 05:33 Absolute Neuts (auto) 6.7 10^3/ul (1.5-7.7) 09/17/18 05:33 Absolute Lymphs (auto) 0.8 10^3/ul (1.0-4.8) L 09/17/18 05:33 Absolute Monos (auto) 0.6 10^3/ul (0-0.8) 09/17/18 05:33 Absolute Eos (auto) 0 10^3/ul (0-0.6) 09/17/18 05:33 Absolute Basos (auto) 0 10^3/ul (0-0.2) 09/17/18 05:33 Absolute Nucleated RBC 0 10^3/ul 09/17/18 05:33 Nucleated RBC % 0 09/17/18 05:33 Polychromasia 1+ 09/17/18 05:33 Microcytosis 1+ 09/17/18 05:33 Elliptocytes 1+ 09/17/18 05:33 INR (Anticoag Therapy) 1.20 (0.77-1.02) H 09/17/18 05:33 Sodium 139 mmol/L (135-145) 09/17/18 05:33 Potassium 3.8 mmol/L (3.5-5.0) 09/17/18 05:33 Chloride 110 mmol/L (101-111) 09/17/18 05:33 Carbon Dioxide 23 mmol/L (22-32) 09/17/18 05:33 Anion Gap 6 mmol/L (2-11) 09/17/18 05:33 BUN 15 mg/dL (6-24) 09/17/18 05:33 Creatinine 1.00 mg/dL (0.51-0.95) H 09/17/18 05:33 Est GFR ( Amer) 67.1 (>60) 09/17/18 05:33 Est GFR (Non-Af Amer) 55.5 (>60) 09/17/18 05:33 BUN/Creatinine Ratio 15.0 (8-20) 09/17/18 05:33 Glucose 169 mg/dL (70-100) H 09/17/18 05:33 POC Glucose (mg/dL) 222 mg/dL (70-100) H 09/16/18 22:28 Lactic Acid 0.7 mmol/L (0.5-2.0) 09/17/18 05:33 Calcium 8.0 mg/dL (8.6-10.3) L 09/17/18 05:33 Phosphorus 3.6 mg/dL (2.5-5.0) 09/16/18 05:20 Magnesium 2.3 mg/dL (1.9-2.7) 09/17/18 05:33 Iron < 17 ug/dL (50-212) L 09/14/18 05:21 TIBC 293 mcg/dL (250-450) 09/14/18 05:21 % Saturation 6 % (15-55) L 09/14/18 05:21 Unsat Iron Binding < 278 ug/dL 09/14/18 05:21 Transferrin 209 mg/dL (203-362) 09/14/18 05:21 Ferritin 32.5 ng/mL (11-307) 09/14/18 05:21 Total Bilirubin 0.40 mg/dL (0.2-1.0) 09/16/18 05:20 AST 10 U/L (13-39) L 09/16/18 05:20 ALT 6 U/L (7-52) L 09/16/18 05:20 Alkaline Phosphatase 51 U/L (34-104) 09/16/18 05:20 Total Protein 4.7 g/dL (6.4-8.9) L 09/16/18 05:20 Albumin 2.2 g/dL (3.2-5.2) L 09/16/18 05:20 Globulin 2.5 g/dL (2-4) 09/16/18 05:20 Albumin/Globulin Ratio 0.9 (1-3) L 09/16/18 05:20 Triglycerides 89 mg/dL 09/14/18 05:21 Cholesterol 87 mg/dL 09/14/18 05:21 LDL Cholesterol 44 mg/dL 09/14/18 05:21 HDL Cholesterol 25.4 mg/dL 09/14/18 05:21 Carcinoembryonic Ag 41.6 ng/mL (0.1-5.0) H 09/12/18 17:38 Vitamin B12 1021 pg/mL (180-914) H 09/14/18 05:21 Folate 7.23 ng/mL (>3.99) 09/14/18 05:21 TSH 3.20 mcIU/mL (0.34-5.60) 09/14/18 05:21 Blood Type B Positive 09/16/18 05:20 Antibody Screen Negative 09/16/18 05:20 Crossmatch See Detail 09/16/18 05:20 Assessment: POD# 2 s/p exlap sigmoid colon resection with end colostomy Pre-operative anemia and suspect some post op hemorrhage-improved S/P transfusion of 3 PRBC's and 2 units of FFP--H/H improved, renal function improving with decreased Cr and increasing urine output. BP and HR stable. Plan: H/H at 1400 today Continue montes de oca catheter Continue to hold heparin IVF Clear liquids Pulmonary toilet Recheck labs in AM Care discussed with her daughter in law at the bedside this morning and questions answered.
[2018-09-17] MEDS: Famotidine IV* 10 MG/ML 2 ML (20 mg) IV SCH ×2 (10:51→20:42)
[2018-09-17] MEDS: Sertraline* 100 MG TAB PO SCH (10:51)
[2018-09-17] MEDS: Acetaminophen TAB* 325 MG PO PRN (13:52)
[2018-09-17] MEDS: Lactated Ringers 1000 ML Bag* 1,000 ML IV SCH ×2 (13:58→19:28)
[2018-09-17 14:29] LABS: Hematocrit 30 % (35-47); Hemoglobin 9.3 g/dl (12.0-16.0)
[2018-09-18] MEDS: Lactated Ringers 1000 ML Bag* 1,000 ML IV SCH ×3 (02:06→22:20)
[2018-09-18 05:14] LABS: ABS Basophils 0 10^3/ul (0-0.2); ABS Eosinophils 0 10^3/ul (0-0.6); ABS Lymphocytes 0.5 10^3/ul (1.0-4.8); ABS Monocytes 0.5 10^3/ul (0-0.8); ABS Neutrophils 5.9 10^3/ul (1.5-7.7); ABS Nucleated RBC 0 10^3/ul; Eosinophil % 0 %; Hematocrit 28 % (35-47); Hemoglobin 9.1 g/dl (12.0-16.0); Lymphocyte % 7.7 %; Mean Corpuscular HGB Conc 32 g/dl (31-36); Mean Corpuscular Hemoglobin 22 pg (27-31); Mean Corpuscular Volume 68 fL (80-97); Mean Platelet Volume 7.5 fL (7.4-10.4); Nucleated Red Blood Cells % 0; Platelet Count 444 10^3/ul (150-450); Red Blood Count 4.19 10^6/ul (4.00-5.40); Red Cell Distribution Width 22 % (10.5-15)
[2018-09-18 05:28] LABS: Albumin 2.6 g/dL (3.2-5.2); Albumin/Globulin Ratio 0.9 (1-3); Calcium 7.7 mg/dL (8.6-10.3); EGFR African American 76.8 (>60); EGFR Non-African American 63.5 (>60); Globulin 2.9 g/dL (2-4); Potassium 3.7 mmol/L (3.5-5.0); Total Bilirubin 0.4 mg/dL (0.2-1.0); Total Protein 5.5 g/dL (6.4-8.9)
[2018-09-18] MEDS: Sertraline* 100 MG TAB PO SCH (07:21)
[2018-09-18] MEDS: Famotidine IV* 10 MG/ML 2 ML (20 mg) IV SCH ×2 (07:21→20:26)
[2018-09-18] MEDS: Levothyroxine TAB* 125 MCG TAB PO SCH (07:21)
[2018-09-18] MEDS: Acetaminophen TAB* 325 MG PO PRN ×2 (07:22→18:00)
--- NOTE | 2018-09-18 08:56 | PN ---
Progress Note - Progress Note Date of Service: 09/18/18 SOAP: Subjective: mild abdominal pain and sleepy today. otherwise without complaints Objective: Vital Signs Temp Pulse Resp BP Pulse Ox 98.2 F 76 20 118/54 95 09/18/18 07:23 09/18/18 07:23 09/18/18 08:00 09/18/18 07:23 09/18/18 08:00 lying flat in nad perr eomi op dry cta bl s1s2 nl distended, mild ttp throughout, dressing dry and intact, liquid brown stool in bag no le edema oriented x 3, grossly nonfocal neurological exam Laboratory Results - last 24 hr 09/17/18 09/17/18 09/17/18 12:38 14:23 17:21 WBC RBC Hgb 9.3 L Hct 30 L MCV MCH MCHC RDW Plt Count MPV Neut % (Auto) Lymph % (Auto) [place] % (Auto) Eos % (Auto) Baso % (Auto) Absolute Neuts (auto) Absolute Lymphs (auto) Absolute Monos (auto) Absolute Eos (auto) Absolute Basos (auto) Absolute Nucleated RBC Nucleated RBC % Sodium Potassium Chloride Carbon Dioxide Anion Gap BUN Creatinine Est GFR ( Amer) Est GFR (Non-Af Amer) BUN/Creatinine Ratio Glucose POC Glucose (mg/dL) 200 H 171 H Calcium Total Bilirubin AST ALT Alkaline Phosphatase Total Protein Albumin Globulin Albumin/Globulin Ratio 09/17/18 09/18/18 09/18/18 20:39 04:42 04:42 WBC 7.0 RBC 4.19 Hgb 9.1 L Hct 28 L MCV 68 L MCH 22 L MCHC 32 RDW 22 H Plt Count 444 MPV 7.5 Neut % (Auto) 84.9 Lymph % (Auto) 7.7 [place] % (Auto) 7.2 Eos % (Auto) 0 Baso % (Auto) 0.2 Absolute Neuts (auto) 5.9 Absolute Lymphs (auto) 0.5 L Absolute Monos (auto) 0.5 Absolute Eos (auto) 0 Absolute Basos (auto) 0 Absolute Nucleated RBC 0 Nucleated RBC % 0 Sodium 137 Potassium 3.7 Chloride 108 Carbon Dioxide 25 Anion Gap 4 BUN 16 Creatinine 0.89 Est GFR ( Amer) 76.8 Est GFR (Non-Af Amer) 63.5 BUN/Creatinine Ratio 18.0 Glucose 112 H POC Glucose (mg/dL) 153 H Calcium 7.7 L Total Bilirubin 0.40 AST 9 L ALT 8 Alkaline Phosphatase 57 Total Protein 5.5 L Albumin 2.6 L Globulin 2.9 Albumin/Globulin Ratio 0.9 L 09/18/18 07:12 WBC RBC Hgb Hct MCV MCH MCHC RDW Plt Count MPV Neut % (Auto) Lymph % (Auto) [place] % (Auto) Eos % (Auto) Baso % (Auto) Absolute Neuts (auto) Absolute Lymphs (auto) Absolute Monos (auto) Absolute Eos (auto) Absolute Basos (auto) Absolute Nucleated RBC Nucleated RBC % Sodium Potassium Chloride Carbon Dioxide Anion Gap BUN Creatinine Est GFR ( Amer) Est GFR (Non-Af Amer) BUN/Creatinine Ratio Glucose POC Glucose (mg/dL) 135 H Calcium Total Bilirubin AST ALT Alkaline Phosphatase Total Protein Albumin Globulin Albumin/Globulin Ratio Acetaminophen (Tylenol Tab*) 650 mg PO Q4H PRN PRN Reason: Pain Or Temperature >101 F Last Admin: 09/18/18 07:22 Dose: 650 mg Dextrose (D50w Syringe 50 Ml*) 12.5 gm IV PUSH .FOR FS < 60 - SS PRN PRN Reason: FS < 60 Famotidine (Pepcid Iv*) 20 mg IV Q12HR [facility] Last Admin: 09/18/18 07:21 Dose: 20 mg Guaifenesin (Robitussin*) 10 ml PO Q6HR PRN PRN Reason: COUGH Lactated Ringer's (Lactated Ringers 1000 Ml Bag*) 1,000 mls @ 150 mls/hr IV PER RATE [facility] Last Admin: 09/18/18 02:06 Dose: 150 mls/hr Insulin Human Lispro (Humalog*) 0 units SUBCUT [facility]; Protocol Last Admin: 09/17/18 21:51 Dose: 2 units Levothyroxine Sodium (Synthroid Tab*) 125 mcg PO 0800 [facility] Last Admin: 09/18/18 07:21 Dose: 125 mcg Morphine Sulfate (Morphine Inj ((Syringe))*) 4 mg IV Q2H PRN PRN Reason: PAIN - MODERATE Last Admin: 09/16/18 22:26 Dose: 4 mg Morphine Sulfate (Morphine Inj ((Syringe))*) 6 mg IV Q2H PRN PRN Reason: PAIN - SEVERE Ondansetron HCl (Zofran Inj*) 4 mg IV Q4H PRN PRN Reason: NAUSEA/VOMITING Sertraline HCl (Zoloft*) 100 mg PO 0800 [facility] Last Admin: 09/18/18 07:21 Dose: 100 mg Assessment: 68 yo F w near obstructing tumor mass in sigmoid colon now sp resection of what sounds like a T3 lesion (though awaiting path), recovering quite well postoperatively. Plan: -fu path, can see as outpatient for recommendations LAILA as well as acute blood loss: related to blood loss from tumor plus surgery now sp transfusion and stable can start oral iron on discharge plus vitamin C
--- NOTE | 2018-09-18 09:23 | PN ---
Progress Note - Progress Note Date of Service: 09/18/18 SOAP: Subjective: [] no complaints, "hungry" Objective: [] afebrile vss, incision CDI, stoma viable, functioning well Assessment: [] stable postop sigmoid colectomy Plan: []advance diet supplement calcium
[2018-09-18] MEDS: Insulin LISPRO* 1 UNITS UNIT SUBCUT SCH ×4 (10:00→20:37)
[2018-09-18] MEDS: Calcium Carbonate CHEW TAB* 500 MG (TUMS) PO SCH ×2 (10:00→20:26)
--- NOTE | 2018-09-18 11:39 | PN ---
Subjective Date of Service: 09/18/18 Interval History: No c/o, enjoyed breakfast. Objective Active Medications: Acetaminophen (Tylenol Tab*) 650 mg PO Q4H PRN PRN Reason: Pain Or Temperature >101 F Last Admin: 09/18/18 07:22 Dose: 650 mg Calcium Carbonate (Tums*) 500 mg PO BID [facility] Last Admin: 09/18/18 10:00 Dose: 500 mg Dextrose (D50w Syringe 50 Ml*) 12.5 gm IV PUSH .FOR FS < 60 - SS PRN PRN Reason: FS < 60 Famotidine (Pepcid Iv*) 20 mg IV Q12HR [facility] Last Admin: 09/18/18 07:21 Dose: 20 mg Guaifenesin (Robitussin*) 10 ml PO Q6HR PRN PRN Reason: COUGH Lactated Ringer's (Lactated Ringers 1000 Ml Bag*) 1,000 mls @ 75 mls/hr IV PER RATE [facility] Insulin Glargine (Lantus(*)) 5 units SUBCUT Q24H [facility] Insulin Human Lispro (Humalog*) 0 units SUBCUT ACHS [facility]; Protocol Last Admin: 09/18/18 10:00 Dose: 1 units Levothyroxine Sodium (Synthroid Tab*) 125 mcg PO 0800 [facility] Last Admin: 09/18/18 07:21 Dose: 125 mcg Morphine Sulfate (Morphine Inj ((Syringe))*) 4 mg IV Q2H PRN PRN Reason: PAIN - MODERATE Last Admin: 09/16/18 22:26 Dose: 4 mg Morphine Sulfate (Morphine Inj ((Syringe))*) 6 mg IV Q2H PRN PRN Reason: PAIN - SEVERE Ondansetron HCl (Zofran Inj*) 4 mg IV Q4H PRN PRN Reason: NAUSEA/VOMITING Sertraline HCl (Zoloft*) 100 mg PO 0800 [facility] Last Admin: 09/18/18 07:21 Dose: 100 mg Vital Signs - 8 hr 09/18/18 09/18/18 07:23 08:00 Temperature 98.2 F Pulse Rate 76 Respiratory 18 20 Rate Blood Pressure 118/54 (mmHg) O2 Sat by Pulse 95 95 Oximetry Oxygen Devices in Use Now: None Appearance: Alert, partly up in bed. In good spirits. Looks comfortable. DIL at bedside. Eyes: No Scleral Icterus Abdominal: NL Sounds; No Tenderness; No Distention, No Hepatosplenomegaly, - Neurological: NL Sensation - Sl dyasrthric. Answers simple questions appropriately. Result Diagrams: 09/18/18 04:42 09/18/18 04:42 Assess/Plan/Problems-Billing Assessment: 68 yo F with intellectual disability at baseline, resides in SNF, HTN, DM who presented for ongoing weight loss and LAILA found to have T4 colon Ca s/p ex lap and colostomy. - Patient Problems (1) Colon adenocarcinoma Current Visit: Yes Status: Acute Code(s): C18.9 - MALIGNANT NEOPLASM OF COLON, UNSPECIFIED SNOMED Code(s): 742124221 Comment: -S/P cystoscopy, BL retrogrades, BL ureteral stent placement to yuliet ureter to avoid them during explore lap done on 09/15/18. -S/P Exp. Lap; sigmoid resection; lysis of adhesions; end-colostomy placement -Awaiting biopsy/pathology results. Dr. Rubin's note appreciated. (2) Hypothyroidism Current Visit: Yes Status: Acute Code(s): E03.9 - HYPOTHYROIDISM, UNSPECIFIED SNOMED Code(s): 85810552 Comment: -Continue current levothyroxine -TSH WNL 09/14/18. (3) Anemia Current Visit: Yes Status: Acute Code(s): D64.9 - ANEMIA, UNSPECIFIED SNOMED Code(s): 800505769 Comment: -s/p I U PRBC on 09/16, appropriate response -B12, and folate levels reassuring -Iron studies suggest LAILA + AOCD as expected -Consider PO supplentation on D/C (4) Intellectual disability Current Visit: Yes Status: Acute Code(s): F79 - UNSPECIFIED INTELLECTUAL DISABILITIES SNOMED Code(s): 337987561 Comment: At baseline, HCProxy sister in law Megan. Son is also SDM. (5) Diabetes 1.5, managed as type 2 Current Visit: Yes Status: Acute Code(s): E13.9 - OTHER SPECIFIED DIABETES MELLITUS WITHOUT COMPLICATIONS SNOMED Code(s): 805939355 Comment: -Hba1c (08/29/18) = 5.6 Starting Lantus 5 U daily 09/18/18. Status and Disposition: -As above, also would remove montes de oca today -For PT re-eval in AM
[2018-09-18] MEDS: Insulin GLARGINE(*) 1 UNITS UNIT SUBCUT SCH (13:52)
[2018-09-19] MEDS: Acetaminophen TAB* 325 MG PO PRN ×2 (05:23→20:46)
[2018-09-19] MEDS: Levothyroxine TAB* 125 MCG TAB PO SCH (08:41)
[2018-09-19] MEDS: Sertraline* 100 MG TAB PO SCH (08:41)
[2018-09-19] MEDS: Famotidine IV* 10 MG/ML 2 ML (20 mg) IV SCH ×2 (08:42→20:08)
[2018-09-19] MEDS: Calcium Carbonate CHEW TAB* 500 MG (TUMS) PO SCH ×2 (08:42→20:07)
[2018-09-19] MEDS: Insulin LISPRO* 1 UNITS UNIT SUBCUT SCH ×4 (08:42→20:48)
--- NOTE | 2018-09-19 09:29 | PN ---
Progress Note - Progress Note Date of Service: 09/19/18 Note: Surgery Progress: S: POD #4. Some pain; using only Tylenol. Vignesh diet. Ostomy active. Current Medications Acetaminophen (Tylenol Tab*) 650 mg PO Q4H PRN PRN Reason: Pain Or Temperature >101 F Last Admin: 09/19/18 05:23 Dose: 650 mg Calcium Carbonate (Tums*) 500 mg PO BID [facility] Last Admin: 09/19/18 08:42 Dose: 500 mg Dextrose (D50w Syringe 50 Ml*) 12.5 gm IV PUSH .FOR FS < 60 - SS PRN PRN Reason: FS < 60 Famotidine (Pepcid Iv*) 20 mg IV Q12HR [facility] Last Admin: 09/19/18 08:42 Dose: 20 mg Guaifenesin (Robitussin*) 10 ml PO Q6HR PRN PRN Reason: COUGH Lactated Ringer's (Lactated Ringers 1000 Ml Bag*) 1,000 mls @ 75 mls/hr IV PER RATE [facility] Last Admin: 09/18/18 22:20 Dose: 75 mls/hr Insulin Glargine (Lantus(*)) 5 units SUBCUT Q24H [facility] Last Admin: 09/18/18 13:52 Dose: 5 units Insulin Human Lispro (Humalog*) [address] [facility]; Protocol Last Admin: 09/19/18 08:42 Dose: 2 units Levothyroxine Sodium (Synthroid Tab*) 125 mcg PO 0800 [facility] Last Admin: 09/19/18 08:41 Dose: 125 mcg Morphine Sulfate (Morphine Inj ((Syringe))*) 4 mg IV Q2H PRN PRN Reason: PAIN - MODERATE Last Admin: 09/16/18 22:26 Dose: 4 mg Morphine Sulfate (Morphine Inj ((Syringe))*) 6 mg IV Q2H PRN PRN Reason: PAIN - SEVERE Ondansetron HCl (Zofran Inj*) 4 mg IV Q4H PRN PRN Reason: NAUSEA/VOMITING Sertraline HCl (Zoloft*) 100 mg PO 0800 [facility] Last Admin: 09/19/18 08:41 Dose: 100 mg O: Vital Signs - 8 hr 09/19/18 09/19/18 09/19/18 03:49 07:24 07:35 Temperature 97.9 F 98.3 F Pulse Rate 78 73 Respiratory 18 17 16 Rate Blood Pressure 128/57 118/65 (mmHg) O2 Sat by Pulse 95 98 98 Oximetry Intake and Output Last 24 Hours 09/17/18 09/18/18 09/19/18 09/20/18 06:59 06:59 06:59 06:59 Intake Total 3488 2710 2050 Output Total 665 597 1873 Balance 3088 1805 -500 Intake: IV Fluids 975 1780 990 LR 675 1780 990 Packed Red Blood Cells 300 IVPB 2031 Magnesium 140 NS (0.9%) 1000 Packed Red Blood Cells 548 Platelets 343 Oral 011 246 1810 Packed Cells 242 Output: [place] 061 237 9283 Colostomy 200 355 525 Other: # Bowel Movements 0 Gen: obese female; sleepy; NAD Heart: reg Lungs: clear to bases Abd: obese; mildly distended and tympanitic; BS normal; soft; mild, mostly incisional tenderness; incision clean and dry; edilberto intact fs gluc: 135-202 A: s/p sigmoid colectomy for adenoca (see path), improving P: scheduled to have stents removed tomorrow; per Dr. Rashid, could return to SNF thereafter. Could probably resume all of her usual home diabetes regimen; will defer to hospitalist D/c IVF
[2018-09-19] MEDS: Insulin GLARGINE(*) 1 UNITS UNIT SUBCUT SCH (13:58)
--- NOTE | 2018-09-19 15:39 | PN ---
Subjective Date of Service: 09/19/18 Interval History: No c/o. Objective Active Medications: Acetaminophen (Tylenol Tab*) 650 mg PO Q4H PRN PRN Reason: Pain Or Temperature >101 F Last Admin: 09/19/18 05:23 Dose: 650 mg Calcium Carbonate (Tums*) 500 mg PO BID [facility] Last Admin: 09/19/18 08:42 Dose: 500 mg Dextrose (D50w Syringe 50 Ml*) 12.5 gm IV PUSH .FOR FS < 60 - SS PRN PRN Reason: FS < 60 Famotidine (Pepcid Iv*) 20 mg IV Q12HR [facility] Last Admin: 09/19/18 08:42 Dose: 20 mg Guaifenesin (Robitussin*) 10 ml PO Q6HR PRN PRN Reason: COUGH Lactated Ringer's (Lactated Ringers 1000 Ml Bag*) 1,000 mls @ 75 mls/hr IV PER RATE [facility] Last Admin: 09/18/18 22:20 Dose: 75 mls/hr Insulin Glargine (Lantus(*)) 10 units SUBCUT Q24H [facility] Insulin Human Lispro (Humalog*) 0 units SUBCUT ACHS [facility]; Protocol Last Admin: 09/19/18 13:58 Dose: 4 units Levothyroxine Sodium (Synthroid Tab*) 125 mcg PO 0800 [facility] Last Admin: 09/19/18 08:41 Dose: 125 mcg Morphine Sulfate (Morphine Inj ((Syringe))*) 4 mg IV Q2H PRN PRN Reason: PAIN - MODERATE Last Admin: 09/16/18 22:26 Dose: 4 mg Morphine Sulfate (Morphine Inj ((Syringe))*) 6 mg IV Q2H PRN PRN Reason: PAIN - SEVERE Ondansetron HCl (Zofran Inj*) 4 mg IV Q4H PRN PRN Reason: NAUSEA/VOMITING Sertraline HCl (Zoloft*) 100 mg PO 0800 [facility] Last Admin: 09/19/18 08:41 Dose: 100 mg Vital Signs - 8 hr 09/19/18 09/19/18 07:35 11:10 Temperature 97.3 F Pulse Rate 75 Respiratory 16 17 Rate Blood Pressure 129/63 (mmHg) O2 Sat by Pulse 98 96 Oximetry Oxygen Devices in Use Now: None Appearance: In a chair, in good spirits. Looks comfortable. Eyes: No Scleral Icterus Neurological: NL Sensation - Smiles socially. Seems content. No tremor. Result Diagrams: 09/18/18 04:42 09/18/18 04:42 Assess/Plan/Problems-Billing Assessment: 68 yo F with intellectual disability at baseline, resides in SNF, HTN, DM who presented for ongoing weight loss and LAILA found to have T4 colon Ca s/p ex lap and colostomy. - Patient Problems (1) Colon adenocarcinoma Current Visit: Yes Status: Acute Code(s): C18.9 - MALIGNANT NEOPLASM OF COLON, UNSPECIFIED SNOMED Code(s): 359376898 Comment: -S/P cystoscopy, BL retrogrades, BL ureteral stent placement to yuliet ureter to avoid them during explore lap done on 09/15/18. Stents to be removed 09/20. -S/P Exp. Lap; sigmoid resection; lysis of adhesions; end-colostomy placement Pathology shows mod diff adenoca extending to serosa. 0/15 lymph nodes involved. Good proximal and distal margins. Dr. Rubin's note appreciated. (2) Hypothyroidism Current Visit: Yes Status: Acute Code(s): E03.9 - HYPOTHYROIDISM, UNSPECIFIED SNOMED Code(s): 86008546 Comment: -Continue current levothyroxine -TSH WNL 09/14/18. (3) Anemia Current Visit: Yes Status: Acute Code(s): D64.9 - ANEMIA, UNSPECIFIED SNOMED Code(s): 056267773 Comment: -s/p I U PRBC on 09/16, appropriate response -B12, and folate levels reassuring -Iron studies suggest LAILA + AOCD as expected -Consider PO supplentation on D/C (4) Intellectual disability Current Visit: Yes Status: Acute Code(s): F79 - UNSPECIFIED INTELLECTUAL DISABILITIES SNOMED Code(s): 288766839 Comment: At baseline, HCProxy sister in law Megan. Son is also SDM. (5) Diabetes 1.5, managed as type 2 Current Visit: Yes Status: Acute Code(s): E13.9 - OTHER SPECIFIED DIABETES MELLITUS WITHOUT COMPLICATIONS SNOMED Code(s): 012303105 Comment: -Hba1c (08/29/18) = 5.6 Increase Lantus 10 10 U daily at noon, 09/20/18. Continue SS. Status and Disposition: -As above, also would remove tavon today -For PT re-eval in AM
[2018-09-19] MEDS: Ondansetron INJ* 2 MG/ML VIAL IV PRN ×2 (17:42→20:01)
[2018-09-19] MEDS ORDERED: Ondansetron INJ* 2 MG/ML VIAL IV PRN (19:40)
[2018-09-20] MEDS: Acetaminophen TAB* 325 MG PO PRN (02:53)
[2018-09-20] MEDS: Ondansetron INJ* 2 MG/ML VIAL IV PRN (05:22)
--- NOTE | 2018-09-20 08:54 | PN ---
Subjective Date of Service: 09/20/18 Interval History: HD #9 on 09/20/18 68 yo F with intellectual disability at baseline, resides in SNF, HTN, DM who presented for ongoing weight loss and LAILA found to have T4 colon Ca s/p ex lap and colostomy. Overnight no acute events, VSS, plan for urologic procedure todfay This morning seen sitting up in chair, nappinh, responsive to voice pt is oriented to name and place, not to situation, slowed responses c/w her baseline. Denies pain or complaints, would like apple juice, otherwise reports no issues. ROS CP, SOB, GI, complaints neg. Plan for d/c to SNF until she can care for her ostomy, if ever. Objective Active Medications: Acetaminophen (Tylenol Tab*) 650 mg PO Q4H PRN PRN Reason: Pain Or Temperature >101 F Last Admin: 09/20/18 02:53 Dose: 650 mg Calcium Carbonate (Tums*) 500 mg PO BID [facility] Last Admin: 09/19/18 20:07 Dose: 500 mg Dextrose (D50w Syringe 50 Ml*) 12.5 gm IV PUSH .FOR FS < 60 - SS PRN PRN Reason: FS < 60 Famotidine (Pepcid Iv*) 20 mg IV Q12HR [facility] Last Admin: 09/19/18 20:08 Dose: 20 mg Guaifenesin (Robitussin*) 10 ml PO Q6HR PRN PRN Reason: COUGH Lactated Ringer's (Lactated Ringers 1000 Ml Bag*) 1,000 mls @ 75 mls/hr IV PER RATE [facility] Last Admin: 09/18/18 22:20 Dose: 75 mls/hr Insulin Glargine (Lantus(*)) 10 units SUBCUT Q24H [facility] Insulin Human Lispro (Humalog*) 0 units SUBCUT ACHS [facility]; Protocol Last Admin: 09/19/18 20:48 Dose: 2 units Levothyroxine Sodium (Synthroid Tab*) 125 mcg PO 0800 [facility] Last Admin: 09/19/18 08:41 Dose: 125 mcg Morphine Sulfate (Morphine Inj ((Syringe))*) 4 mg IV Q2H PRN PRN Reason: PAIN - MODERATE Last Admin: 09/16/18 22:26 Dose: 4 mg Morphine Sulfate (Morphine Inj ((Syringe))*) 6 mg IV Q2H PRN PRN Reason: PAIN - SEVERE Ondansetron HCl (Zofran Inj*) 4 mg IV Q4H PRN PRN Reason: NAUSEA/VOMITING Last Admin: 09/20/18 05:22 Dose: 4 mg Ondansetron HCl (Zofran Inj*) 4 mg IV ONCE PRN PRN Reason: NAUSEA Stop: 09/20/18 19:39 Sertraline HCl (Zoloft*) 100 mg PO 0800 [facility] Last Admin: 09/19/18 08:41 Dose: 100 mg Vital Signs - 8 hr 09/20/18 09/20/18 02:09 03:56 Temperature 97.8 F Pulse Rate 86 Respiratory 16 Rate Blood Pressure 157/86 (mmHg) O2 Sat by Pulse 96 97 Oximetry Oxygen Devices in Use Now: None Appearance: Napping woman in chair in NAD, rouses to voice, slowed response Ears/Nose/Mouth/Throat: NL Teeth, Lips, Gums, Mucous Membranes Moist Neck: NL Appearance and Movements; NL JVP Respiratory: Symmetrical Chest Expansion and Respiratory Effort, Clear to Auscultation Cardiovascular: NL Sounds; No Murmurs; No JVD, RRR Abdominal: - - Ostomy with flatus Lymphatic: No Cervical Adenopathy Extremities: No Edema Skin: No Rash or Ulcers Neurological: - - Slow to respond, can tell me name Result Diagrams: 09/18/18 04:42 09/18/18 04:42 Assess/Plan/Problems-Billing Assessment: 68 yo F with intellectual disability at baseline, resides in SNF, HTN, DM who presented for ongoing weight loss and LAILA found to have T4 colon Ca s/p ex lap and colostomy. - Patient Problems (1) Colon adenocarcinoma Current Visit: Yes Status: Acute Code(s): C18.9 - MALIGNANT NEOPLASM OF COLON, UNSPECIFIED SNOMED Code(s): 541324351 Comment: -S/P cystoscopy, BL retrogrades, BL ureteral stent placement to yuliet ureter to avoid them during explore lap done on 09/15/18. Stents to be removed 09/20 today -S/P Exp. Lap; sigmoid resection; lysis of adhesions; end-colostomy placement Pathology shows mod diff adenoca extending to serosa. 0/15 lymph nodes involved. Good proximal and distal margins. Dr. Rubin's note appreciated. -Will plan to d/c to SNF until if ever she can care for her ostomy, she came from assisted living, brother from [employer] invovled in decision making. (2) Anemia Current Visit: Yes Status: Acute Code(s): D64.9 - ANEMIA, UNSPECIFIED SNOMED Code(s): 162695334 Comment: -s/p I U PRBC on 09/16, appropriate response -B12, and folate levels reassuring -Iron studies suggest LAILA + AOCD as expected -Consider PO supplentation on D/C (3) Diabetes 1.5, managed as type 2 Current Visit: Yes Status: Acute Code(s): E13.9 - OTHER SPECIFIED DIABETES MELLITUS WITHOUT COMPLICATIONS SNOMED Code(s): 866338067 Comment: -Hba1c (08/29/18) = 5.6 Increase Lantus 10 10 U daily at noon, 09/20/18. Continue SS. (4) Hypothyroidism Current Visit: Yes Status: Acute Code(s): E03.9 - HYPOTHYROIDISM, UNSPECIFIED SNOMED Code(s): 20767751 Comment: -Continue current levothyroxine -TSH WNL 09/14/18. (5) Intellectual disability Current Visit: Yes Status: Acute Code(s): F79 - UNSPECIFIED INTELLECTUAL DISABILITIES SNOMED Code(s): 386769610 Comment: At baseline, [employer] sister in law Megan. Son is also SDM. (6) DVT prophylaxis Current Visit: Yes Status: Acute Code(s): TGD7685 - SNOMED Code(s): 450941204 Comment: -Continue SCDs, consider lovenox unless contraindication given ongoing onc Status and Disposition: Xfer to SNF likely 09/21
[2018-09-20] MEDS: Calcium Carbonate CHEW TAB* 500 MG (TUMS) PO SCH ×2 (09:33→21:21)
[2018-09-20] MEDS: Sertraline* 100 MG TAB PO SCH (09:33)
[2018-09-20] MEDS: Levothyroxine TAB* 125 MCG TAB PO SCH (09:33)
[2018-09-20] MEDS: Famotidine IV* 10 MG/ML 2 ML (20 mg) IV SCH ×2 (09:39→21:22)
[2018-09-20] MEDS: Insulin LISPRO* 1 UNITS UNIT SUBCUT SCH ×4 (09:39→21:21)
[2018-09-20] MEDS ORDERED: Levofloxacin 500 MG IVPREMIX(* 500 MG/100 ML BAG IVPB ONE (10:47)
[2018-09-20] MEDS ORDERED: Iohexol 180 (CONTRAST) 10 ML SDV IV ONE (11:47)
[2018-09-20] MEDS ORDERED: Midazolam* 1 MG/ML 5 ML VIAL (5 MG) ONE (11:48)
[2018-09-20] MEDS ORDERED: fentaNYL* 50 MCG/ML 2 ML VIAL (100 MCG VIAL) ONE (12:03)
[2018-09-20] MEDS: Insulin GLARGINE(*) 1 UNITS UNIT SUBCUT SCH (14:33)
--- NOTE | 2018-09-20 15:02 | PN ---
Progress Note - Progress Note Date of Service: 09/20/18 Note: S: POD #5. Had cysto this a.m. for removal of stents. Had some vomiting yesterday and was backed down to clear liqs. Feels better today and has been martina clears well. Would like to try to eat again. Per nsg, ostomy has been active. No other complaints. O: Vital Signs - 8 hr 09/20/18 09/20/18 09/20/18 07:39 08:00 12:15 Temperature 97.3 F Pulse Rate 82 83 Respiratory 18 18 17 Rate Blood Pressure 130/73 110/66 (mmHg) O2 Sat by Pulse 97 96 Oximetry 09/20/18 09/20/18 09/20/18 12:17 12:20 12:21 Temperature 98.1 F Pulse Rate 83 79 Respiratory 18 11 Rate Blood Pressure 114/66 (mmHg) O2 Sat by Pulse 95 97 Oximetry 09/20/18 09/20/18 09/20/18 12:25 12:30 12:35 Temperature Pulse Rate 80 83 81 Respiratory 16 17 18 Rate Blood Pressure 102/63 100/67 105/80 (mmHg) O2 Sat by Pulse 98 97 97 Oximetry 09/20/18 09/20/18 09/20/18 12:41 12:45 13:00 Temperature Pulse Rate 69 84 79 Respiratory 17 16 14 Rate Blood Pressure 117/70 108/74 117/79 (mmHg) O2 Sat by Pulse 97 95 94 Oximetry 09/20/18 09/20/18 09/20/18 13:01 13:15 13:56 Temperature 97.2 F Pulse Rate 80 79 72 Respiratory 17 13 20 Rate Blood Pressure 121/73 115/64 (mmHg) O2 Sat by Pulse 92 97 98 Oximetry Intake and Output Last 24 Hours 09/18/18 09/19/18 09/20/18 09/21/18 06:59 06:59 06:59 06:59 Intake Total 2710 2050 450 970 Output Total 905 2550 2400 700 Balance 1805 -500 -1950 270 Intake: IV Fluids 1780 990 850 D5W 100ML, Levaquin 500MG 100 LR 1780 990 750 Oral 930 1060 450 120 Output: Urine 700 200 [place] 550 2025 1200 Colostomy 355 525 500 500 Gen: sitting up in bed; appears comfortable, NAD Heart: reg Lungs: fairly clear, even to bases Abd: obese; still somewhat distended/tympanitic, though less vs yesterday. Midline incision healing well; no s/sx of infection; edilberto intact. Soft; min tenderness to palp Extr: no sig edema; moderate ecchymosis of RUE (no sig tenderness) A: s/p sigmoid colectomy w/ end-colostomy, improving; now s/p stent removal P: will try full liqs; anticipate tx to SNF tomorrow; discussed w/ Dr. Rashid
--- NOTE | 2018-09-20 15:21 | OP ---
DATE OF OPERATION: 09/20/18 - ROOM #348 DATE OF : 54 SURGEON: Isidro Auguste MD. ANESTHESIOLOGIST: Dr. Dacosta. ANESTHESIA: Intravenous sedation. PRE-OP DIAGNOSIS: Sigmoid tumor. POST-OP DIAGNOSIS: Sigmoid tumor. OPERATIVE PROCEDURE: 1. Cystoscopy. 2. Bilateral stent removal. COMPLICATIONS: None. POSTOPERATIVE CONDITION: Stable. INDICATIONS: Magdalena Barroso is a 68-year-old lady who had undergone sigmoid resection for a large sigmoid tumor. The General Surgery services had requested bilateral stent insertion preoperatively, which was done, and she is now being brought in for a stent removal with intravenous sedation. DESCRIPTION OF PROCEDURE: After administration of IV sedation, the patient was placed in dorsal lithotomy position. Cystoscopy was performed. The stents were seen exiting from the right and left ureteral orifices and were removed intact without difficulties. The bladder was emptied. The patient tolerated the procedure satisfactorily and was transferred back to the recovery area in stable condition. [id number]/CPS #: [id number] MTDD
[2018-09-21 06:19] LABS: ABS Basophils 0 10^3/ul (0-0.2); ABS Eosinophils 0 10^3/ul (0-0.6); ABS Monocytes 0.6 10^3/ul (0-0.8); ABS Neutrophils 4.5 10^3/ul (1.5-7.7); ABS Nucleated RBC 0 10^3/ul; Eosinophil % 0 %; Hematocrit 32 % (35-47); Hemoglobin 10.2 g/dl (12.0-16.0); Lymphocyte % 16.3 %; Mean Corpuscular HGB Conc 32 g/dl (31-36); Mean Corpuscular Hemoglobin 22 pg (27-31); Mean Corpuscular Volume 68 fL (80-97); Mean Platelet Volume 7.1 fL (7.4-10.4); Nucleated Red Blood Cells % 0.1; Platelet Count 482 10^3/ul (150-450); Red Blood Count 4.71 10^6/ul (4.00-5.40); Red Cell Distribution Width 23 % (10.5-15)
[2018-09-21 06:35] LABS: BUN/Creatinine Ratio 11.6 (8-20); Calcium 8.3 mg/dL (8.6-10.3); EGFR African American 79.9 (>60); Potassium 3.7 mmol/L (3.5-5.0)
[2018-09-21] MEDS: Insulin LISPRO* 1 UNITS UNIT SUBCUT SCH ×2 (06:58→13:14)
[2018-09-21] MEDS: Levothyroxine TAB* 125 MCG TAB PO SCH (08:15)
[2018-09-21] MEDS: Sertraline* 100 MG TAB PO SCH (08:15)
[2018-09-21] MEDS: Calcium Carbonate CHEW TAB* 500 MG (TUMS) PO SCH (10:09)
[2018-09-21] MEDS: Famotidine IV* 10 MG/ML 2 ML (20 mg) IV SCH (10:09)
--- NOTE | 2018-09-21 11:04 | PN ---
Progress Note - Progress Note Date of Service: 09/21/18 Note: S: POD #6. Seems better; no N/V; martina full liqs; ostomy active O: Vital Signs - 8 hr 09/21/18 07:14 Temperature 97.6 F Pulse Rate 71 Respiratory 16 Rate Blood Pressure 120/61 (mmHg) O2 Sat by Pulse 97 Oximetry Intake and Output Last 24 Hours 09/19/18 09/20/18 09/21/18 09/22/18 06:59 06:59 06:59 06:59 Intake Total 2050 450 1600 120 Output Total 2550 2400 2125 Balance -500 -1950 -525 120 Intake: IV Fluids 990 850 D5W 100ML, Levaquin 500MG 100 LR 990 750 Oral 1060 450 750 120 Output: Urine 700 1000 Holden 2024 1200 Colostomy 409 254 1515 Other: Estimated Void Large Date of Last Bowel 09/21/2018 Movement # Voids 1 Gen: sitting up in chair; appears comfortable Heart: reg Lungs: clear Abd: obese; softly distended/tympanitic; min tenderness, not well localized; incision ok; ostomy edematous; flatus and some liq stool in bag A: s/p sigmoid colectomy w/ end-colostomy for carcinoma, improving P: prob to SNF today; surg f/u arranged for next wk.
[2018-09-21] MEDS: Insulin GLARGINE(*) 1 UNITS UNIT SUBCUT SCH (13:13)
--- NOTE | 2018-09-21 13:53 | TRS ---
CC: [facility].* TRANSFER SUMMARY: DATE OF ADMISSION: 09/12/18 DATE OF TRANSFER: 09/21/18 HISTORY OF PRESENT ILLNESS/HOSPITAL COURSE: This 68-year-old woman is a long- term resident of [facility]. She was evaluated by her primary care provider for anemia. She had abnormal CT findings of thickening of the colon. She had outpatient colonoscopy on the day of admission, which showed a large colon mass that was friable and bleeding. On 09/14/18, she had insertion of bilateral ureteral stents to help the surgeon identify the ureters at the time of surgery. On 09/15/18, she had sigmoid colon resection with lysis of adhesions and formation of an end colostomy. The patient has had her ureteral stents removed on 09/20/18. She did very well postoperatively. The pathology report came back that the margins were more than 2 cm, free of tumor. The tumor penetrated through the serosa. 0/14 lymph nodes were positive. This was staged as a T3N0 tumor. The patient will need oncology followup to determine a treatment plan. The patient should have surgical followup in 1 week after discharge. FINAL DIAGNOSES: 1. 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 2. Hypothyroidism. 3. Anemia. 4. Intellectual disability. 5. Diabetes. DISCHARGE MEDICATIONS: 1. Glargine insulin 20 units h.s. 2. Ferrous sulfate 325 mg once daily. 3. Guaifenesin 10 mL every 6 hours p.r.n. 4. Fluphenazine IM 0.5 mL IM once monthly. 5. Vitamin D3 50,000 units weekly. 6. Simvastatin 10 mg at bedtime. 7. Sertraline 100 mg daily. 8. Cetirizine 10 mg daily. 9. Omeprazole 20 mg daily. 10. Levothyroxine 125 mcg daily. CONDITION ON DISCHARGE: Stable. DISPOSITION ON DISCHARGE: Discharged to [facility]. [id number]/CPS #: [id number]/[facility] #: [id number] [facility]ITALCarm[facility]
--- NOTE | 2018-09-21 13:53 | PN ---
Progress Note - Progress Note Date of Service: 09/21/18 Note: Time spent on discharge including exam of patient, discussion with pt, nurse,CM , review of EMR and preparation of discharge documents is 45 minutes.
--- NOTE | 2018-09-21 14:19 | TRS ---
TRANSFER SUMMARY: ADDENDUM: The patient has had her ureteral stents removed on 09/20/18. She did very well postoperat ively. The pathology report came back that the margins were more than 2 cm, free of tumor. The tumo r penetrated through the serosa. 0/14 lymph nodes were positive. This was staged as a T3N0 tumor. The patient will need oncology followup to determine a treatment plan. The patient should have surgi mariola followup in 1 week after discharge. FINAL DIAGNOSES: 1. 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 2. Hypothyroidism. 3. Anemia. 4. Intellectual disability. 5. Diabetes. DISCHARGE MEDICATIONS: 1. Glargine insulin 20 units h.s. 2. Ferrous sulfate 325 mg once daily. 3. Guaifenesin 10 mL every 6 hours p.r.n. 4. Fluphenazine IM 0.5 mL IM once monthly. 5. Vitamin D3 50,000 units weekly. 6. Simvastatin 10 mg at bedtime. 7. Sertraline 100 mg daily. 8. Cetirizine 10 mg daily. 9. Omeprazole 20 mg daily. 10. Levothyroxine 125 mcg daily. CONDITION ON DISCHARGE: Stable. DISPOSITION ON DISCHARGE: Discharged to [facility]. [id number]/[facility] #: [id number]
[2018-09-21 14:36] VITALS: BP 110/60
[2018-09-22] MEDS ORDERED: Ferrous Sulfate TAB* 325 MG PO SCH (09:00)
== END 2018-09-21 15:00 | DRG 331 ==
LOC: OR 10:18 → OBSVTOIN 14:21 → MED 14:21 → SSU 09-15 14:15
PROVIDERS: ADMIT Internal Medicine; ATTEND Internal Medicine
PROC: 0T788DZ Dilation of Bilateral Ureters with Intraluminal Device, Via Natural or Artificial Opening Endoscopic (ICD-10-PCS; 2018-09-14)
PROC: BT14ZZZ Fluoroscopy of Kidneys, Ureters and Bladder (ICD-10-PCS; 2018-09-14)
PROC: 0DNW0ZZ Release Peritoneum, Open Approach (ICD-10-PCS; 2018-09-15)
PROC: 30233N1 Transfusion of Nonautologous Red Blood Cells into Peripheral Vein, Percutaneous Approach (ICD-10-PCS; principal; 2018-09-16)
PROC: 0D1N0Z4 Bypass Sigmoid Colon to Cutaneous, Open Approach (ICD-10-PCS; 2018-09-20)
PROC: 0DBN0ZZ Excision of Sigmoid Colon, Open Approach (ICD-10-PCS; 2018-09-20)
PROC: 0TP98DZ Removal of Intraluminal Device from Ureter, Via Natural or Artificial Opening Endoscopic (ICD-10-PCS; 2018-09-20)
PROC: 0DBB8ZX Excision of Ileum, Via Natural or Artificial Opening Endoscopic, Diagnostic (ICD-10-PCS; 2018-09-20)
DX: C18.9 Malignant neoplasm of colon, unspecified (principal); E11.9 Type 2 diabetes mellitus without complications; E03.9 Hypothyroidism, unspecified; D50.9 Iron deficiency anemia, unspecified; E78.5 Hyperlipidemia, unspecified; I34.0 Nonrheumatic mitral (valve) insufficiency; F79 Unspecified intellectual disabilities; N32.0 Bladder-neck obstruction; I95.9 Hypotension, unspecified; I10 Essential (primary) hypertension; E66.01 Morbid (severe) obesity due to excess calories; F20.9 Schizophrenia, unspecified; K66.0 Peritoneal adhesions (postprocedural) (postinfection); Z68.36 Body mass index [BMI] 36.0-36.9, adult; K21.9 Gastro-esophageal reflux disease without esophagitis; F32.9 Major depressive disorder, single episode, unspecified; Z88.1 Allergy status to other antibiotic agents; Z88.0 Allergy status to penicillin; Z90.710 Acquired absence of both cervix and uterus; Z79.4 Long term (current) use of insulin
CPT/HCPCS: 36415; 71260; 74018; 74177; 74420; 80048; 80053; 80061; 82378; 82607; 82728; 82746; 83540; 83550; 83605; 83735; 84100; 84443; 85014; 85018; 85025; 85027; 85610; 86850; 86900; 86901; 86922; 86927; 88305; 88309; 88341; 88342; 93005; 99223; 99232; A9270-GY; C2625; G8978-GP-CH; G8979-GP-CH; G8980-GP-CH; J1170; J1240; J1580; J1644; J1885; J1956; J2250; J2270; J2405; J2704; J3010; J3475; P9016; P9017; P9040; Q9967

== ENCOUNTER 2020-09-16 14:41 | Inpatient (IN) ==
[2020-09-16 15:26] LABS: ABS Lymphocytes 0.3 10^3/ul (1.0-4.8); ABS Monocytes 0.2 10^3/ul (0-0.8); ABS Neutrophils 5.5 10^3/ul (1.5-7.7); Hematocrit 36 % (35-47); Lymphocyte % 5.4 %; Mean Corpuscular HGB Conc 34 g/dL (31-36); Mean Corpuscular Hemoglobin 27 pg (27-31); Mean Corpuscular Volume 81 fL (80-97); Mean Platelet Volume 8.1 fL (7.4-10.4); Nucleated Red Blood Cells % 0.1; Platelet Count 304 10^3/uL (150-450); Red Blood Count 4.42 10^6 /uL (3.70-4.87); Red Cell Distribution Width 17 % (10-15); White Blood Count 6.1 10^3/uL (3.5-10.8)
[2020-09-16 15:31] LABS: Albumin 3.5 g/dL (3.2-5.2); Calcium 8.7 mg/dL (8.6-10.3); Total Bilirubin 0.5 mg/dL (0.2-1.0)
[2020-09-16 15:37] LABS: Albumin/Globulin Ratio 0.9 (1-3); BUN/Creatinine Ratio 17.2 (8-20); EGFR African American 67.5 (>60); EGFR Non-African American 55.8 (>60); Globulin 3.7 g/dL (2-4); INR 1.2 (0.82-1.09); Total Protein 7.2 g/dL (6.4-8.9)
[2020-09-16] MEDS ORDERED: Al Hydrox/Mg Hydrox/Simet LIQ 30 ML UDC PO PRN (16:38)
[2020-09-16] MEDS ORDERED: Remdesivir 100 mg Vial 200 MG in NS 0.9% 250 ml 210 ML IV ONE (16:59)
[2020-09-16] MEDS ORDERED: FluPHENAZine IM 2.5 MG/ML 1 ml IM SCH (17:00)
[2020-09-16] MEDS ORDERED: Insulin GLARGINE 100 un/ml 10 ml VIAL SUBCUT SCH (21:00)
[2020-09-16 22:05] LABS: INR 1.17 (0.82-1.09)
[2020-09-16 22:12] LABS: Albumin 3.3 g/dL (3.2-5.2); Albumin/Globulin Ratio 0.9 (1-3); BUN/Creatinine Ratio 16.2 (8-20); Calcium 8.7 mg/dL (8.6-10.3); EGFR African American 59.1 (>60); EGFR Non-African American 48.9 (>60); Globulin 3.8 g/dL (2-4); Potassium 4.6 mmol/L (3.5-5.0); Total Bilirubin 0.6 mg/dL (0.2-1.0); Total Protein 7.1 g/dL (6.4-8.9)
[2020-09-16] MEDS: Enoxaparin 60 MG/0.6 ML SYR SUBCUT SCH (22:12)
[2020-09-16] MEDS: CMCS: Simvastatin 10 mg TAB (NF) PO SCH (22:13)
[2020-09-16] MEDS: Insulin GLARGINE 100 un/ml 10 ml VIAL SUBCUT SCH (22:13)
[2020-09-17 05:53] LABS: ABS Lymphocytes 0.6 10^3/ul (1.0-4.8); ABS Monocytes 0.4 10^3/ul (0-0.8); Hematocrit 35 % (35-47); Hemoglobin 11.6 g/dL (12.0-16.0); Lymphocyte % 11.9 %; Mean Corpuscular HGB Conc 33 g/dL (31-36); Mean Corpuscular Hemoglobin 27 pg (27-31); Mean Corpuscular Volume 82 fL (80-97); Mean Platelet Volume 7.9 fL (7.4-10.4); Nucleated Red Blood Cells % 0.1; Platelet Count 310 10^3/uL (150-450); Red Blood Count 4.31 10^6 /uL (3.70-4.87); Red Cell Distribution Width 17 % (10-15)
[2020-09-17 06:29] LABS: Albumin 3.3 g/dL (3.2-5.2); Calcium 8.3 mg/dL (8.6-10.3); Potassium 4.1 mmol/L (3.5-5.0); Total Bilirubin 0.4 mg/dL (0.2-1.0)
[2020-09-17 06:35] LABS: Albumin/Globulin Ratio 1.1 (1-3); BUN/Creatinine Ratio 16.8 (8-20); C Reactive Protein 83.5 mg/L (<8.01); EGFR African American 70.8 (>60); EGFR Non-African American 58.5 (>60); Total Protein 6.3 g/dL (6.4-8.9)
[2020-09-17] MEDS ORDERED: Dextrose 50% Syringe 50 ml 25 GM/50 ML SYRINGE IV PUSH PRN (08:46)
[2020-09-17] MEDS: Enoxaparin 60 MG/0.6 ML SYR SUBCUT SCH (10:05)
[2020-09-17 20:59] LABS: ABS Lymphocytes 0.3 10^3/ul (1.0-4.8); ABS Monocytes 0.2 10^3/ul (0-0.8); ABS Neutrophils 3.9 10^3/ul (1.5-7.7); Hematocrit 34 % (35-47); Hemoglobin 11.3 g/dL (12.0-16.0); Lymphocyte % 7.6 %; Mean Corpuscular HGB Conc 33 g/dL (31-36); Mean Corpuscular Hemoglobin 28 pg (27-31); Mean Corpuscular Volume 83 fL (80-97); Mean Platelet Volume 8.1 fL (7.4-10.4); Platelet Count 321 10^3/uL (150-450); Red Cell Distribution Width 17 % (10-15); White Blood Count 4.5 10^3/uL (3.5-10.8)
[2020-09-17] MEDS: Insulin GLARGINE 100 un/ml 10 ml VIAL SUBCUT SCH (21:12)
[2020-09-17] MEDS: Heparin 5000 UNITS/ML 1 mL VIAL SUBCUT SCH (21:13)
[2020-09-17] MEDS: CMCS: Simvastatin 10 mg TAB (NF) PO SCH (21:16)
[2020-09-17] MEDS: Remdesivir 100 mg Vial 100 MG in NS 0.9% 250 ml 230 ML IV SCH (21:19)
[2020-09-18] MEDS: Heparin 5000 UNITS/ML 1 mL VIAL SUBCUT SCH ×3 (06:15→22:55)
[2020-09-18 10:43] LABS: Hematocrit 34 % (35-47); Hemoglobin 11.5 g/dL (12.0-16.0); Mean Corpuscular HGB Conc 34 g/dL (31-36); Mean Corpuscular Hemoglobin 27 pg (27-31); Mean Corpuscular Volume 80 fL (80-97); Platelet Count 350 10^3/uL (150-450); Red Blood Count 4.28 10^6 /uL (3.70-4.87); Red Cell Distribution Width 17 % (10-15); White Blood Count 5.8 10^3/uL (3.5-10.8)
[2020-09-18 11:03] LABS: Albumin 3.3 g/dL (3.2-5.2); BUN/Creatinine Ratio 21.3 (8-20); Calcium 8.7 mg/dL (8.6-10.3); EGFR African American 76.3 (>60); EGFR Non-African American 63.1 (>60); Globulin 3.4 g/dL (2-4); Potassium 3.7 mmol/L (3.5-5.0); Total Bilirubin 0.3 mg/dL (0.2-1.0); Total Protein 6.7 g/dL (6.4-8.9)
[2020-09-18 12:44] LABS: ABS Basophils 0.1 10^3/ul (0-0.2); ABS Lymphocytes 1.1 10^3/ul (1.0-4.8); ABS Monocytes 0.4 10^3/ul (0-0.8); ABS Neutrophils 4.3 10^3/ul (1.5-7.7); Lymphocyte % 18.2 %
[2020-09-18 17:55] LABS: Glucose Confirmatory 426 mg/dL (70-100)
[2020-09-18] MEDS ORDERED: Dextrose 50% Syringe 50 ml 25 GM/50 ML SYRINGE IV PUSH PRN (18:10)
[2020-09-18] MEDS: Remdesivir 100 mg Vial 100 MG in NS 0.9% 250 ml 230 ML IV SCH (21:00)
[2020-09-18] MEDS ORDERED: Insulin GLARGINE 100 un/ml 10 ml VIAL SUBCUT SCH (21:00)
[2020-09-18] MEDS: CMCS: Simvastatin 10 mg TAB (NF) PO SCH (22:57)
[2020-09-19] MEDS: Heparin 5000 UNITS/ML 1 mL VIAL SUBCUT SCH ×2 (06:16→14:48)
[2020-09-19 13:24] VITALS: BP 125/54
[2020-09-19 17:50] LABS: Glucose Confirmatory 404 mg/dL (70-100)
== END 2020-09-19 18:02 | disposition swing bed (61) | DRG 177 ==
LOC: ED 14:41 → MED 16:39
PROVIDERS: ADMIT Internal Medicine; ATTEND Internal Medicine

== ENCOUNTER 2020-09-19 18:02 | Inpatient (IN) ==
[2020-09-19] MEDS ORDERED: Dextrose 50% Syringe 50 ml 25 GM/50 ML SYRINGE IV PUSH PRN (18:54)
[2020-09-19] MEDS ORDERED: FluPHENAZine IM 2.5 MG/ML 1 ml IM SCH (19:00)
[2020-09-19] MEDS ORDERED: Insulin GLARGINE 100 un/ml 10 ml VIAL SUBCUT SCH (21:00)
[2020-09-19] MEDS: CMC:Simvastatin 10 mg TAB (NF) PO SCH (21:08)
[2020-09-19] MEDS: Enoxaparin 40 MG/0.4 ML SYR SUBCUT SCH (21:08)
[2020-09-19] MEDS: Insulin GLARGINE 100 un/ml 10 ml VIAL SUBCUT SCH (22:15)
[2020-09-20] MEDS: Insulin GLARGINE 100 un/ml 10 ml VIAL SUBCUT SCH (21:34)
[2020-09-20] MEDS: Enoxaparin 40 MG/0.4 ML SYR SUBCUT SCH (22:18)
[2020-09-20] MEDS: CMC:Simvastatin 10 mg TAB (NF) PO SCH (22:18)
[2020-09-21] MEDS: Enoxaparin 40 MG/0.4 ML SYR SUBCUT SCH (22:40)
[2020-09-21] MEDS: Insulin GLARGINE 100 un/ml 10 ml VIAL SUBCUT SCH (22:41)
[2020-09-21] MEDS: CMC:Simvastatin 10 mg TAB (NF) PO SCH (23:14)
[2020-09-22] MEDS: Enoxaparin 40 MG/0.4 ML SYR SUBCUT SCH (20:39)
[2020-09-22] MEDS: Insulin GLARGINE 100 un/ml 10 ml VIAL SUBCUT SCH (20:40)
[2020-09-22] MEDS: CMC:Simvastatin 10 mg TAB (NF) PO SCH (20:41)
[2020-09-23] MEDS: Insulin GLARGINE 100 un/ml 10 ml VIAL SUBCUT SCH (21:57)
[2020-09-23] MEDS: Enoxaparin 40 MG/0.4 ML SYR SUBCUT SCH (21:57)
[2020-09-23] MEDS: CMC:Simvastatin 10 mg TAB (NF) PO SCH (22:42)
[2020-09-24] MEDS: Insulin GLARGINE 100 un/ml 10 ml VIAL SUBCUT SCH (21:10)
[2020-09-24] MEDS: Enoxaparin 40 MG/0.4 ML SYR SUBCUT SCH (21:10)
[2020-09-24] MEDS: CMC:Simvastatin 10 mg TAB (NF) PO SCH (21:10)
[2020-09-25] MEDS: Enoxaparin 40 MG/0.4 ML SYR SUBCUT SCH (20:49)
[2020-09-25] MEDS: Insulin GLARGINE 100 un/ml 10 ml VIAL SUBCUT SCH (20:49)
[2020-09-25] MEDS: CMC:Simvastatin 10 mg TAB (NF) PO SCH (20:51)
[2020-09-26] MEDS: SIMETHICONE 40 MG/0.6 ML PO PRN ×2 (05:07→20:19)
[2020-09-26] MEDS: Enoxaparin 40 MG/0.4 ML SYR SUBCUT SCH (20:18)
[2020-09-26] MEDS: Insulin GLARGINE 100 un/ml 10 ml VIAL SUBCUT SCH (20:19)
[2020-09-26] MEDS: CMC:Simvastatin 10 mg TAB (NF) PO SCH (20:19)
[2020-09-27 07:50] VITALS: BP 106/53
== END 2020-09-27 14:00 | disposition home or self-care (01) | DRG 177 ==
LOC: MED 18:02
PROVIDERS: ADMIT Internal Medicine; ATTEND Student in an Organized Health Care Education/Training Program